=== PATIENT | female | born 1960 | race Caucasian/White ===

== ENCOUNTER 2023-10-26 10:10 | Inpatient (IN) ==
[2023-10-26] MEDS: propofoL 1,000 MG/100 ML VIAL IV SCH (10:18)
--- NOTE | 2023-10-26 10:22 | Emergency Department Note ---
Impression & Plan Acute hypoxic respiratory failure, Flash pulmonary edema, CHF (congestive heart failure) ED Provider Note NAME: RALPH PENA AGE: 63 SEX: F : 1960 ARRIVES VIA: Ambulance INFORMANT: EMS, Nurse ED PROVIDER(S): Lux Smith DO CHIEF COMPLAINT: Shortness of breath HPI: Patient is a 63-year-old female who was over at [facility] getting a MRI of her knee performed. They noticed that she was in respiratory distress and she was blue and she was intubated by anesthesia who was called to MRI. Prior to the MRI she received no medications/sedation per report of EMS. She received succinylcholine, propofol and Versed from anesthesiology who was called to the MRI to intubate and evaluate the patient. She was transported here via EMS. Initially they tried CPAP but that did not help. Unable to obtain a history from the patient. She received no IV contrast. ADDITIONAL HISTORY OBTAINED: Per HPI Chronic Medical/Social Conditions Affecting Care: Per HPI PAST MEDICAL HISTORY:See Below PAST SURGICAL HISTORY:See Below FAMILY HISTORY:See Below SOCIAL HISTORY:See Below HOME MEDICATIONS:See Below ALLERGIES:See Below VITALS:See Below PHYSICAL EXAMINATION: GENERAL: Lying in bed intubated, moving all extremities EYE EXAM: normal conjunctiva. PERRL and EOM's grossly intact. OROPHARYNX: no exudate, no erythema, lips, buccal mucosa, and tongue normal and mucous membranes are moist NECK: supple, no nuchal rigidity, no adenopathy, non-tender LUNGS: Diminished bilaterally. Normal chest wall mechanics HEART: no murmurs, S1 normal and S2 normal ABDOMEN: abdomen soft, non-tender, normo-active bowel sounds, no masses, no rebound or guarding. UPPER EXTREMITIES: upper extremities are grossly normal. LOWER EXTREMITIES: Pitting edema in the lower extremities NEURO EXAM: Awake moving all extremities following commands MEDICAL DECISION MAKING: Patient is a 63-year-old female who presents the ER following obtaining an MRI increase fluids and was intubated there. She was transported here via EMS. Upon arrival she was fighting the vent and consequently was paralyzed with poor tidal volumes. IV was established blood work was obtained. Labs showed a mild leukocytosis of 15,000. No significant anemia. ABG with a pH of 7 and a CO2 of nearly 70. BMP was suggestive of an acidosis with a bicarb of 19. Glucose was mildly elevated at 300. Lactate was elevated at 4 which is likely secondary to the hypoxia. LFTs bilirubin was unremarkable. Troponin mildly elevated at 33. Pro-Johnnie was normal. Chest x-ray with bilateral opacities and in the clinical setting I do favor is most consistent with flash pulmonary edema as the patient has bilateral pitting edema and is very hypertensive. Patient was placed on propofol drip given 5 of Versed and 10 of vecuronium initially upon arrival to assist with compliance of the vent and tidal volumes. Case was discussed with the hospitalist as well as the hog cooler. They favored that at this point was likely not pulmonary edema consequently I did hold on the Lasix. Will defer to the hog cooler as they requested a CT of the head and angio of the chest which was pending upon admission and patient has stabilized. Propofol was used for sedation and was adjusted throughout the patient's stay in the ER. Consults/Care Managements Discussions: Per [facility] Triage Nursing notes reviewed. Limited review of prior medical records performed Vital Signs: reviewed and remarkable for hypertensive, tachycardic and tachypneic Differential diagnosis: Differential diagnoses includes but is not limited to pneumonia, bronchitis, COPD/Asthma exacerbation, pneumothorax, pulmonary embolism, congestive heart failure, acute coronary syndrome ER treatment provided: See below Diagnostics interpreted by me include EKG and cardiac monitoring as listed below: -Cardiac Monitoring: An order was placed for continuous cardiac monitoring. The monitor shows a rate of 110 with sinus rhythm. -ECG: Sinus rhythm rate of 126 Normal axis No PVCs QTc [address] wave changes in the septal leads and inferior leads slightly changed from previous -Laboratory studies:Interpreted by me as stated above in MDM and shown below. Imaging studies: Xrays: As interpreted by me: Portable AP upright 1 view the chest shows bilateral infiltrates CTs show: CT of the head was negative per radiology Procedures:none Critical Care:I have personally spent 75 minutes of critical care time in the direct management of this patient. This includes bedside care, interpretation of diagnostic studies, and testing, discussion with consultants, patient, and family members, and other required patient management activities. This 75 minutes is in excess of all separately billable procedures. 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 Required: No Current Living Situation: Spouse Current Living Situation Comment: Per [facility] Records Assistive Devices: Denture - Upper, Denture - Lower and Glasses Assistive Devices Comment: Reading glasses Allergies Allergies Allergy/AdvReac Type Severity Reaction Status Date / Time codeine AdvReac Gastrointestinal Verified 10/26/23 13:42 Upset Home Meds Home Medications Medication Instructions Recorded Confirmed ATORVASTATIN (LIPITOR) 80 mg PO DAILY ##0 09/14/17 10/26/23 acetaminophen 650 mg 650 mg PO Q8H PRN Pain 10/26/23 10/26/23 tablet,extended release (Tylenol Arthritis Pain) Results & Data (ED) Vital Signs Vital Signs - 24 hr 10/26/23 10:15 10/26/23 10:16 10/26/23 10:16 Pulse Rate 126 H 115 H 127 H Pulse Rate from SpO2 Sensor Pulse Rhythm Regular Pulse Strength Normal Respiratory Rate 27 H 28 H 41 H Blood Pressure 195/123 H 195/123 H Blood Pressure Mean 147 152 Blood Pressure Position Lying Pulse Oximetry 100 95 99 Oxygen Delivery Method Mechanical Vent Mechanical Vent Fraction of Inspired Oxygen 100 Sepsis New/Unexplained Change in Mental Status No Sepsis Action Taken by Nursing Physician Notified End-Tidal CO2 46 10/26/23 10:25 10/26/23 10:27 10/26/23 10:32 Pulse Rate 110 H 103 H Pulse Rate from SpO2 Sensor 111 H Pulse Rhythm Pulse Strength Respiratory Rate 28 H 28 H Blood Pressure 141/90 H 124/88 Blood Pressure Mean 107 95 Blood Pressure Position Pulse Oximetry 96 94 Oxygen Delivery Method Mechanical Vent Mechanical Vent Fraction of Inspired Oxygen 50 Sepsis New/Unexplained Change in Mental Status Sepsis Action Taken by Nursing End-Tidal CO2 39 10/26/23 10:34 10/26/23 10:39 10/26/23 10:42 Pulse Rate 126 H 92 H Pulse Rate from SpO2 Sensor 92 H Pulse Rhythm Pulse Strength Respiratory Rate 28 H Blood Pressure 120/81 107/83 Blood Pressure Mean 92 91 Blood Pressure Position Pulse Oximetry 91 Oxygen Delivery Method Mechanical Vent Fraction of Inspired Oxygen Sepsis New/Unexplained Change in Mental Status Sepsis Action Taken by Nursing End-Tidal CO2 33 10/26/23 10:44 10/26/23 10:48 10/26/23 10:51 Pulse Rate 91 H Pulse Rate from SpO2 Sensor 91 H Pulse Rhythm Pulse Strength Respiratory Rate 28 H Blood Pressure 127/78 126/84 134/82 Blood Pressure Mean 92 99 99 Blood Pressure Position Pulse Oximetry 94 Oxygen Delivery Method Mechanical Vent Fraction of Inspired Oxygen Sepsis New/Unexplained Change in Mental Status Sepsis Action Taken by Nursing End-Tidal CO2 33 10/26/23 10:53 10/26/23 10:54 10/26/23 10:58 Pulse Rate 90 93 H Pulse Rate from SpO2 Sensor 92 H Pulse Rhythm Pulse Strength Respiratory Rate 28 H 28 H Blood Pressure 153/90 H 142/90 H Blood Pressure Mean 109 109 Blood Pressure Position Pulse Oximetry 98 100 Oxygen Delivery Method Mechanical Vent Fraction of Inspired Oxygen Sepsis New/Unexplained Change in Mental Status Sepsis Action Taken by Nursing End-Tidal CO2 32 10/26/23 11:00 10/26/23 11:00 Pulse Rate 88 Pulse Rate from SpO2 Sensor 89 Pulse Rhythm Pulse Strength Respiratory Rate 28 H Blood Pressure 136/98 Blood Pressure Mean 110 Blood Pressure Position Pulse Oximetry 100 Oxygen Delivery Method Fraction of Inspired Oxygen Sepsis New/Unexplained Change in Mental Status Sepsis Action Taken by Nursing End-Tidal CO2 31 Laboratory Data 10/26/23 10:20 10/26/23 10:20 Lab Results 10/26/23 10/26/23 10/26/23 Range/Units 10:20 10:22 10:53 WBC 15.17 H (4.8-10.8) K/ul RBC 4.78 (4.20-5.40) M/uL Hgb 13.2 (12.0-16.0) g/dl POC Hgb 13.9 12.9 (12.0-16.0) g/dl Hct 42.8 (37.0-47.0) % POC Hct 41 38 (37-47) % MCV 89.5 (80.0-100.0) fL MCH 27.6 (25.0-34.0) pg MCHC 30.8 L (32.0-36.0) g/dL RDW Std Deviation 44.8 (36.4-46.3) fL RDW Coeff of Vanita 13.7 (11.5-14.5) % Plt Count 283 (130-400) K/uL MPV 12.4 (9.4-12.4) fL Immature Gran % (Auto) 0.5 % Neut % (Auto) 42.1 % Lymph % (Auto) 49.4 % [place] % (Auto) 5.8 % Eos % (Auto) 1.5 % Baso % (Auto) 0.7 % Neut # (Auto) 6.39 (1.40-6.50) K/uL Lymph # (Auto) 7.50 H (1.20-3.40) K/uL [place] # (Auto) 0.88 H (0.11-0.59) K/uL Eos # (Auto) 0.22 (0.00-0.50) K/uL Baso # (Auto) 0.10 (0.00-0.20) K/uL Immature Gran # (Auto) 0.08 (0.01-0.20) K/uL POC pH 7.08 L* (7.35-7.45) POC pCO2 61 H (35-46) mmHg POC pO2 324 H (80-95) mmHg POC HCO3 18 L (19-24) paula/L POC Total CO2 20 L 18 L (24-31) mmol/L POC Base Excess -12.0 L (-9-1.8) paula/L POC ABG O2 Sat 100.0 H (90-95) % POC Sodium 141 140 (135-144) mmol/L Sodium 140 (136-145) mmol/L POC Potassium 3.6 3.3 (3.3-5.0) mmol/L Potassium 3.8 (3.5-5.1) mmol/L POC Chloride 106 (101-112) mmol/L Chloride 106 (98-107) mmol/L Carbon Dioxide 19 L (21-32) mmol/L Anion Gap 15 H (3-11) POC Anion Gap 20.0 (16-25) mmol/L POC BUN 14 (7-18) mg/dl BUN 15 (6-23) mg/dl Creatinine 1.13 (0.6-1.2) mg/dl POC Creatinine 1.0 (0.6-1.3) mg/dl Est Cr Clr Drug Dosing 54.0 ml/min Est GFR ( Amer) 59.1 ml/min Est GFR (Non-Af Amer) 51.0 ml/min BUN/Creatinine Ratio 13.3 (10-20) Glucose 321 H* (70-99(Fasting)) mg/dl POC Glucose (other) 263 H (70-99) mg/dl Estimat Average Glucose 111 mg/dl Hemoglobin A1c 5.5 (4.5-5.6) % Calcium 8.4 L (8.6-10.3) mg/dl POC Ioniz Calcium Peggy 1.12 (1.12-1.32) mmol/l Total Bilirubin 0.6 (0.2-1.0) mg/dl AST 17 (13-39) U/L ALT 14 (7-52) U/L Alkaline Phosphatase 90 (34-104) U/L Troponin I High Sens 33.3 H (0-14) pg/ml Total Protein 7.2 (6.0-8.3) gm/dl Albumin 3.9 (3.4-5.0) gm/dl Globulin 3.3 (2.5-4.0) gm/dl Albumin/Globulin Ratio 1.2 (0.9-2) Lipase 19 (11-82) U/L Procalcitonin < 0.02 (0-0.5) ng/ml Administered Medications Enoxaparin Sodium (Enoxaparin Inj 40 Mg/0.4 Ml Syr) 40 mg SQ Q24H LESTER Stop: 11/25/23 13:59 Last Admin: 10/26/23 14:16 Dose: 40 mg Documented By: TDT Propofol (Diprivan) 1,000 mg in 100 mls @ 5.418 mls/hr IV .[id number] LESTER; Protocol Stop: 10/29/23 10:29 Last Titration: 10/26/23 13:29 Dose: 10 mcg/kg/min, 5.4 mls/hr Documented By: Titration: 10/26/23 12:00 Dose: 35 mcg/kg/min, 19 mls/hr Documented By: Titration: 10/26/23 11:19 Dose: 30.08 mcg/kg/min, 16.3 mls/hr Documented By: Titration: 10/26/23 10:47 Dose: 20 mcg/kg/min, 10.8 mls/hr Documented By: Titration: 10/26/23 10:32 Dose: 30 mcg/kg/min, 16.3 mls/hr Documented By: Admin: 10/26/23 10:18 Dose: 40 mcg/kg/min, 21.7 mls/hr Documented By: REENA Co-signed By: VINOD Fentanyl Citrate (Fentanyl Citrate) 2,500 mcg in 250 mls @ 2.5 mls/hr IV .Q96H LESTER; Protocol Stop: 11/09/23 12:29 Last Titration: 10/26/23 14:51 Dose: 25 mcg/hr, 2.5 mls/hr Documented By: TDT Co-signed By: MAY Titration: 10/26/23 14:04 Dose: 0 mcg/hr, 0 mls/hr Documented By: TDT Co-signed By: MAY Admin: 10/26/23 12:35 Dose: 50 mcg/hr, 5 mls/hr Documented By: TDT Co-signed By: KEMI Famotidine (Pepcid 20mg Iv Push) 20 mg in 5 mls @ 2.5 mls/min IV Q12H LESTER Stop: 11/25/23 12:44 Last Admin: 10/26/23 13:01 Dose: 2.5 mls/min Documented By: JENI Doxycycline Hyclate 100 mg/ (Dextrose) 100 mls @ 50 mls/hr IV Q12H LESTER Stop: 11/02/23 13:59 Last Admin: 10/26/23 14:16 Dose: 50 mls/hr Documented By: JENI Discontinued Medications Furosemide (Furosemide 40 Mg/4 Ml Vial) 40 mg IV NOW STA Stop: 10/26/23 10:37 Last Admin: 10/26/23 10:55 Dose: Not Given Documented By: NH Furosemide (Furosemide Inj 20 Mg/2 Ml Vial) 20 mg IV ONE ONE Stop: 10/26/23 12:32 Last Admin: 10/26/23 13:01 Dose: 20 mg Documented By: TDT Sodium Chloride (Nss) 1,000 mls @ 999 mls/hr IV .Q1H1M ONE Stop: 10/26/23 12:43 Last Admin: 10/26/23 12:45 Dose: Not Given Documented By: ES Piperacillin Sod/Tazobactam Sod (Zosyn) 4.5 gm in 100 mls @ 200 mls/hr IV NOW ONE Stop: 10/26/23 12:25 Last Infusion: 10/26/23 14:51 Dose: Infused Documented By: Admin: 10/26/23 14:16 Dose: 200 mls/hr Documented By: TDT Ioversol (Optiray 320 125ml) 112 ml IV ONCE ONE Stop: 10/26/23 11:38 Last Admin: 10/26/23 11:37 Dose: 112 ml Documented By: SEJAL Midazolam HCl (Midazolam Hcl 5 Mg/Ml 2ml Vial) Confirm Administered Dose 10 mg .ROUTE .STK-MED ONE Stop: 10/26/23 10:21 Last Admin: 10/26/23 10:34 Dose: Not Given Documented By: NH Midazolam HCl (Midazolam Hcl 5 Mg/Ml 1 Ml Vial) 5 mg IV NOW STA Stop: 10/26/23 10:23 Last Admin: 10/26/23 10:24 Dose: 5 mg Documented By: REENA Ibarraaneous (Stat Iv Infusion Titration Per Protocol) 1 each N/A NOW STA Stop: 10/26/23 10:25 Last Admin: 10/26/23 10:35 Dose: Not Given Documented By: REENA Ibarraaneous (Icu Protocol For Hyperglycemia) 1 each N/A ACHS LESTER Stop: 10/28/23 12:29 Last Admin: 10/26/23 13:08 Dose: Not Given Documented By: ES Propofol (Propofol Iv Emulsion 10 Mg/Ml 100 Ml Vial) Confirm Administered Dose 1,000 mg IV .STK-MED ONE Stop: 10/26/23 10:08 Last Admin: 10/26/23 10:34 Dose: Not Given Documented By: NH Vecuronium [place] (Vecuronium [place] 10 Mg Vial) Confirm Administered Dose 10 mg IV .STK-MED ONE Stop: 10/26/23 10:17 Last Admin: 10/26/23 10:34 Dose: Not Given Documented By: NH Vecuronium [place] (Vecuronium [place] 10 Mg Vial) 10 mg IV NOW STA Stop: 10/26/23 10:23 Last Admin: 10/26/23 10:24 Dose: 10 mg Documented By: REENA Co-signed By: VINOD Imaging Data Radiologist's Impression: Chest X-Ray 10/26/23 10:05 XR chest 1V portable CLINICAL HISTORY: Chest pain, nonspecific TECHNIQUE: Single frontal radiograph of the chest was obtained. Comparison: Comparison is made to chest radiograph 02/21/2014 FINDINGS: Endotracheal tube tip measures 4 cm from the armando. Cardiomegaly is noted. Multifocal airspace opacities are seen. No evidence of pleural effusion or pneumothorax. IMPRESSION: 1. Satisfactory appearance of endotracheal tube. 2. Cardiomegaly. 3. Multifocal airspace opacities may represent atelectasis, pneumonia, and/or aspiration. ACT 112: Negative or not required by law. Electronically signed by: Antione Lott M.D. 10/26/2023 10:40 AM Chest CTA 10/26/23 10:45 CT angio chest PE protocol CLINICAL HISTORY: PE TECHNIQUE: Multidetector row helical CT of the chest was performed with angiographic protocol. Coronal and sagittal reformations were obtained. Coronal and sagittal MIPS were obtained from the axial data set and were submitted for review. Automated dose lowering techniques and/or adjustment according to patient size were utilized for this exam. CT DOSE: 1291.86 mGy.cm Comparison: Comparison is made to CTA chest 02/21/2014 FINDINGS: Lungs and pleura: Small bilateral pleural effusions are seen. There are underlying airspace opacities as well as smooth interlobular septal thickening. Heart and pericardium: Cardiomegaly is seen with biatrial enlargement. Vessels: No evidence of pulmonary embolism. Mediastinum and lurdes: Subcentimeter lymph nodes are seen. Chest wall and lower neck: Unremarkable. Abdomen: Unremarkable. Bones: Degenerative changes in the thoracic spine. IMPRESSION: Pulmonary edema and bilateral pleural effusions are seen. Superimposed pneumonia would be impossible to exclude. ACT 112: Negative or not required by law. Electronically signed by: Antione Lott M.D. 10/26/2023 12:[address] 10/26/23 10:45 CT SCAN OF THE BRAIN WITHOUT IV CONTRAST CLINICAL HISTORY: Respiratory failure. Change in mental status. COMPARISON STUDY: No priors. TECHNIQUE: Unenhanced axial CT scan of the brain is performed from the vertex to the skull base. A dose lowering technique was utilized adhering to the principles of ALARA. FINDINGS: An endotracheal tube is noted on the senior linux administrator tomogram. Brain parenchyma: The brain parenchyma is normal in appearance. There is no hemorrhage, mass effect, or evidence of acute territorial ischemia by CT criteria. Manuel-white matter differentiation is preserved. No extra-axial fluid collection is seen. Ventricles, sulci, cisterns: Normal in configuration. Intracranial vasculature: The visualized intracranial vasculature at the skull base is normal in appearance. Calvarium: Unremarkable. Sinuses and mastoids: There is trace mucosal thickening within the ethmoid sinuses. There is a small right mastoid effusion. The left mastoid air cells are well pneumatized. Orbits: The bony orbits are grossly intact. IMPRESSION: There is no hemorrhage, mass effect, or evidence of acute territorial ischemia by CT criteria. ACT 112: Negative or not required by law. Electronically signed by: Simon Ramos M.D. 10/26/2023 11:49 AM Discharge Plan Visit Data Chief Complaint: Respiratory Distress ED Provider: Lux Smith Discharge Problem: Acute hypoxic respiratory failure, Flash pulmonary edema, CHF (congestive heart failure) Patient Disposition: Admitted As Inpatient Discharge Instructions Interventions: ED Discharge Assessment Last Done: 10/26/23 11:28 Discharge Problem: CHF (congestive heart failure) Qualifiers: Heart failure type: unspecified Heart failure chronicity: unspecified Qualified Code(s): I50.9 - Heart failure, unspecified
[2023-10-26] MEDS: VECURONIUM BROMIDE 10 MG VIAL IV STA (10:24)
[2023-10-26] MEDS ORDERED: PROPOFOL BOLUS FROM BAG IV PRN (10:24)
[2023-10-26] MEDS: MIDAZOLAM HCL 5 MG/ML 1 ML VIAL IV STA (10:24)
[2023-10-26] MEDS: VECURONIUM BROMIDE 10 MG VIAL IV ONE (10:34)
[2023-10-26] MEDS: PROPOFOL IV EMULSION 10 MG/ML 100 ML VIAL IV ONE (10:34)
[2023-10-26] MEDS: MIDAZOLAM HCL 5 MG/ML 2ML VIAL ONE (10:34)
[2023-10-26] MEDS: STAT IV Infusion **Titration per Protocol STA (10:35)
[2023-10-26 10:38] LABS: Hematocrit (blood only) 42.8 % (37.0-47.0); Hemoglobin 13.2 g/dl (12.0-16.0); Mean Corpuscular Hemoglobin 27.6 pg (25.0-34.0); Mean Corpuscular Hgb Conc 30.8 g/dL (32.0-36.0); Mean Corpuscular Volume 89.5 fL (80.0-100.0); Mean Platelet Volume 12.4 fL (9.4-12.4); Platelet Count 283 K/uL (130-400); RDW Coefficient of Variation 13.7 % (11.5-14.5); RDW Standard Deviation 44.8 fL (36.4-46.3); Red Blood Count 4.78 M/uL (4.20-5.40); White Blood Count 15.17 K/ul (4.8-10.8)
--- NOTE | 2023-10-26 10:41 | XRay Report ---
XR chest 1V portable CLINICAL HISTORY: Chest pain, nonspecific TECHNIQUE: Single frontal radiograph of the chest was obtained. Comparison: Comparison is made to chest radiograph 02/21/2014 FINDINGS: Endotracheal tube tip measures 4 cm from the armando. Cardiomegaly is noted. Multifocal airspace opaci ties are seen. No evidence of pleural effusion or pneumothorax. IMPRESSION: 1. Satisfactory appearance of endotracheal tube. 2. Cardiomegaly. 3. Multifocal airspace opacities may represent atelectasis, pneumonia, and/or aspiration. ACT 112: Negative or not required by law. Electronically signed by: Antione Lott M.D. 10/26/2023 10:40 AM
[2023-10-26] MEDS: FUROSEMIDE 40 MG/4 ML VIAL IV STA (10:55)
--- NOTE | 2023-10-26 10:55 | History & Physical Report ---
Date of Service October 26, 2023 Assessment & Plan (1) Acute hypoxic respiratory failure: (2) Severe sepsis: (3) Elevated troponin: (4) Increased anion gap metabolic acidosis: Plan Ana Armenta is a 63y/o F with PMHx including dyslipidemia, asthma, HTN and CKD stage III who presented to the ED via ambulance after being intubated by EMS personnel secondary to acute respiratory distress. Acute Hypoxic Respiratory Failure s/p Intubation Severe Sepsis, Flash Pulmonary Edema - Patient meets severe sepsis criteria 2/2 tachypnea, WBC>12K, present source of infection and lactic acidosis. Patient was over at [facility] getting an MRI of her left knee this morning when she suddenly became short of breath during the imaging study. According to staff at [facility], the patient was "blue" in appearance and subsequently had to be intubated by an anesthesia provider who was called to MRI. Initially staff tried CPAP, but unfortunately that did not help. Per EMS, the patient did not receive any medications or sedation prior to the MRI. She also did not receive any IV contrast. Patient received succinylcholine, propofol and Versed from anesthesiology for the intubation. Admitting Vitals: BP 156/106, HR 81, RR 28 and 98% SpO2 via respiratory ventilator. CXR showing satisfactory placement of ET tube, cardiomegaly and multifocal airspace opacities. Chest CTA reveals pulmonary edema w/ bilateral pleural effusions, superimposed pneumonia impossible to exclude. Head CT negative, no evidence of hemorrhage or acute ischemia. Afebrile, WBC elevated at 15.17 on admission. Lactate 4.1, procalcitonin negative. No electrolyte abnormalities. Pt received 40mg IV Lasix in ED - trace b/l pedal edema on exam. 1L NSS bolus ordered 2/2 lactic acidosis. ABG pH 7.378, pCO2 33, pO2 72. Ventilation changes s/p ABG results --> Frequency increased to 28, FIO2 decreased to 50%. RVP, MRSA screen pending - follow. ABX coverage w/ IV Zosyn for now. Blood cultures, UA pending - follow. IV Protonix BID for GI prophylaxis. Echo pending - follow results. Elevated Troponin Trop 33.3 on admission. EKG negative for acute ischemia. Repeat trop pending, follow + trend. Suspect most likely 2/2 cardiac demand. Elevated Glucose Level Increased Anion Gap Metabolic Acidosis Glucose 321 on presentation, repeat POC BSG 263. Pt w/ no previous history of DM. Hgb A1c 5.5 at time of admission. Total CO2 18, anion gap 15. UA pending to assess for ketones - follow. SSI regimen initiated, routine BSG checks. HTN Appears pt was on 40mg lisinopril daily in the past. Not currently taking any antihypertensive meds per chart review. Dyslipidemia Pt on atorvastatin 80mg CONTENT STRATEGY LEAD according to chart review. Holding statin therapy for now; fasting lipid panel in AM - follow. CKD Stage III Cr 1.0 on admission, appears baseline Cr ~1.1-1.4 per chart review. Repeat CMP in AM - monitor renal function. Avoid nephrotoxic meds when able. Patient's daughter, Lyric, is aware of her being admitted here at [facility]. She was contacted by the patient's PCP office ([facility]), who were unable to get ahold of her , Yahir. Therefore, they contacted her daughter who is listed as her secondary contact on [email or web address] [contact information unable on [email or web address]]. Lyric will be communicating this information to Yahir. Yahir Armenta [Patient's ]: #[phone] Lyric Oseguera [Patient's Daughter]: #[phone] DVT Prophylaxis: SQ Lovenox Code Status: FULL CODE - Code status not on file, patient will be full code at this time 2/2 inability to communicate. PCP: NO PCP * However, appears patient has followed w/ Dr. Ariane Lu from [facility] at [facility] in the past per chart review on [email or web address]. Disposition: Admit to ICU for further management and care. Patient seen in collaboration with Dr. Kaminski. Please see addendum. I spent a total of 60 minutes coordinating, documenting, and providing care for this patient excluding time spent in the performance of separately billed services. This included personally reviewing all current laboratories and imaging studies, medical reconciliation, outpatient chart review and discussion with specialists. This chart was completed in part utilizing Speech Voice Recognition Software. Grammatical errors, random word insertions, pronoun errors, and incomplete sentences are an occasional consequence of this system due to software li mitations, ambient noise, and hardware issues. Any formal questions or concerns about the content, text, or information contained within the body of this dictation should be directly addressed to the provider for clarification. History of Present Illness Chief Complaint: Respiratory Distress S/P Intubation Primary Care Provider: NO PCP Ana Armenta is a 63y/o F with PMHx including dyslipidemia, asthma, HTN and CKD stage III who presented to the ED via ambulance after being intubated by EMS personnel secondary to acute respiratory distress. History obtained from chart review and discussion with ED provider. Patient was over at [facility] getting an MRI of her left knee this morning when she suddenly became short of breath during the imaging study. According to staff at [facility], the patient was "blue" in appearance and subsequently had to be intubated by an anesthesia provider who was called to MRI. Initially staff tried CPAP, but unfortunately that did not help. Per EMS, the patient did not receive any med ications or sedation prior to the MRI. She also did not receive any IV contrast. Patient received succinylcholine, propofol and Versed from anesthesiology for the intubation. Unable to obtain any history from patient secondary to intubation status. Allergies Allergy/AdvReac Type Severity Reaction Status Date / Time CODIENE Allergy Mild GI UPSET Uncoded 10/26/23 12:52 Home Medications Medication Instructions Recorded Confirmed Type ATORVASTATIN (LIPITOR) 80 mg PO DAILY ##0 09/14/17 10/26/23 History acetaminophen 650 mg 650 mg PO Q8H PRN Pain 10/26/23 10/26/23 History tablet,extended release (Tylenol Arthritis Pain) Past Med/Surg History Problem List (Updated 10/26/23 @ 12:55 by Jeffrey Castellon MD) Aspiration pneumonitis Endotracheally intubated Increased anion gap metabolic acidosis Elevated glucose level Pleural effusion, bilateral CHF (congestive heart failure) (Acute) Flash pulmonary edema (Acute) Elevated troponin Severe sepsis Acute hypoxic respiratory failure (Acute) Medical History Chronic kidney disease (CKD) Asthma Dyslipidemia Hypertension Social History Preferred Language: Hungarian Review of Systems Review of Systems: Unable to obtain secondary to patient's intubation status. Physical Exam Physical Exam: Please refer to Dr. Kaminski's addendum for physical examination findings. Results & Data Results & Data Vital Signs (Past 12 Hours) Vital Signs Pulse Resp BP Pulse Ox O2 Del Method FiO2 10/26/23 10:39 126 H 10/26/23 10:25 28 H 50 10/26/23 10:16 115 H 28 H 195/123 H 95 Mechanical Vent 10/26/23 10:15 126 H 27 H 100 100 Laboratory Results Short CBC 10/26/23 Range/Units 10:20 WBC 15.17 H (4.8-10.8) K/ul Hgb 13.2 (12.0-16.0) g/dl Hct 42.8 (37.0-47.0) % Plt Count 283 (130-400) K/uL BMP 10/26/23 10:20 Sodium 140 Potassium 3.8 Chloride 106 Carbon Dioxide 19 L BUN 15 Creatinine 1.13 Glucose 321 H* Calcium 8.4 L Liver Function 10/26/23 Range/Units 10:20 Total Bilirubin 0.6 (0.2-1.0) mg/dl AST 17 (13-39) U/L ALT 14 (7-52) U/L Alkaline Phosphatase 90 (34-104) U/L Albumin 3.9 (3.4-5.0) gm/dl Medications Administered Propofol (Diprivan) 1,000 mg in 100 mls @ 10.836 mls/hr IV .[id number] [facility]; Protocol Stop: 10/29/23 10:29 Last Titration: 10/26/23 11:19 Dose: 30.08 mcg/kg/min, 16.3 mls/hr Documented By: Titration: 10/26/23 10:47 Dose: 20 mcg/kg/min, 10.8 mls/hr Documented By: Titration: 10/26/23 10:32 Dose: 30 mcg/kg/min, 16.3 mls/hr Documented By: Admin: 10/26/23 10:18 Dose: 40 mcg/kg/min, 21.7 mls/hr Documented By: REENA Co-signed By: VINOD Discontinued Medications Furosemide (Furosemide 40 Mg/4 Ml Vial) 40 mg IV NOW STA Stop: 10/26/23 10:37 Last Admin: 10/26/23 10:55 Dose: Not Given Documented By: REENA Ioversol (Optiray 320 125ml) 112 ml IV ONCE ONE Stop: 10/26/23 11:38 Last Admin: 10/26/23 11:37 Dose: 112 ml Documented By: SEJAL Midazolam HCl (Midazolam Hcl 5 Mg/Ml 2ml Vial) Confirm Administered Dose 10 mg .ROUTE .STK-MED ONE Stop: 10/26/23 10:21 Last Admin: 10/26/23 10:34 Dose: Not Given Documented By: REENA Midazolam HCl (Midazolam Hcl 5 Mg/Ml 1 Ml Vial) 5 mg IV NOW STA Stop: 10/26/23 10:23 Last Admin: 10/26/23 10:24 Dose: 5 mg Documented By: REENA Miscellaneous (Stat Iv Infusion Titration Per Protocol) 1 each N/A NOW STA Stop: 10/26/23 10:25 Last Admin: 10/26/23 10:35 Dose: Not Given Documented By: REENA Propofol (Propofol Iv Emulsion 10 Mg/Ml 100 Ml Vial) Confirm Administered Dose 1,000 mg IV .STK-MED ONE Stop: 10/26/23 10:08 Last Admin: 10/26/23 10:34 Dose: Not Given Documented By: REENA Vecuronium Hanna (Vecuronium Hanna 10 Mg Vial) Confirm Administered Dose 10 mg IV .STK-MED ONE Stop: 10/26/23 10:17 Last Admin: 10/26/23 10:34 Dose: Not Given Documented By: REENA Vecuronium Hanna (Vecuronium Hanna 10 Mg Vial) 10 mg IV NOW STA Stop: 10/26/23 10:23 Last Admin: 10/26/23 10:24 Dose: 10 mg Documented By: REENA Co-signed By: VINOD ECG Additional Comments: Admitting EKG w/ sinus tachycardia, HR 126bpm and QTc interval 448ms. Code Status & VTE Plan Code Status FULL CODE Supervising Physician Co-Signing Physician Notes Patient is a 63-year-old female with history of asthma, hypertension, hyperlipidemia, stage III CKD, osteoarthritis and no other significant medical problems as per record, presents with respiratory failure requiring intubation and currently unable to provide any history. I tried to reach patient's over the phone, unable to contact him. Most of the history is obtained from patient's records, ER physician. Patient had an MRI of the knee at [facility] today for evaluation of osteoarthritis, and developed respiratory distress developing cyanosis and had to be intubated by anesthesia. She was later transferred to [facility] for further evaluation. She has received succinylcholine, propofol and Versed from anesthesiology. While in ED patient received vecuronium. I personally reviewed blood work and imaging studies. He presented with hypertensive urgency, later blood pressure improved. He also was in sinus tachycardia during my encounter. Blood work suggestive of leukocytosis 15.1 K, chemistry suggestive anion gap metabolic acidosis, also noted glucose elevated at 321, calcium 8.4, A1c 5.5, elevated lactic acid 4.1, procalcitonin 0.02.Initial ABG suggestive of respiratory acidosis with hypercarbia. urine analysis currently pending. Blood cultures pending. CT head showed no acute process. CTA showed findings suggestive of pulmonary edema, bilateral pleural effusion, possible multifocal pneumonia. Nasal MRSA, BioFire currently pending. Physical Exam: Vitals signs as noted above General Appearance:Obese, no distress, + sedated and intubated Head: normocephalic, Atraumatic Eyes: normal inspection, EOMI Neck: supple, Trachea midline Respiratory/Chest: Normal breath sounds, b/l crackles, No accessory muscle use Cardiovascular: S1, S2, No murmur, + tachycardia Abdomen/GI:Soft, Non tender, Bowel sounds present Extremities/Musculoskeletal:normal inspection, 1+ bilateral LE edema Neurologic/Psych: Sedated, intubated, unable to perform complete neurological exam Skin: normal color, warm Acute respiratory failure with hypercarbia Anion gap metabolic acidosis Acute metabolic encephalopathy Flash Pulmonary Edema Possible Sepsis Lactic acidosis likely due to respiratory failure Type II ID demand ischemia Hypertensive urgency--likely situational Sinus tachycardia Possible Aspiration pneumonia Hyperglycemia--Hb A1C 5.5 Negative Nasal MRSA BioFire pending Received IV Lasix in ED Trend troponins, lactate levels Blood cultures obtained Started on IV Zosyn empirically Ventilator management as per ICU team Appreciate critical care input Agree with checking resting echo Monitor volume status closely MRI brain pending Aspiration precautions Acidosis improving on repeat ABG I personally interviewed and examined at bedside. Patient's care is coordinated with Nina Shipman PA-C . I have reviewed the advanced practitioner's documentation, and I agree with plan of care. Please refer to the documentation above for details of patient's presentation and for discussion of other issues. I spent a total of75 minutes coordinating, documenting, and providing care for this patient excluding time spent in the performance of separately billed services.
[2023-10-26 10:57] LABS: Albumin Globulin Ratio 1.2 (0.9-2); Albumin Level 3.9 gm/dl (3.4-5.0); BUN Creatinine Ratio 13.3 (10-20); Bilirubin,Total 0.6 mg/dl (0.2-1.0); Calcium 8.4 mg/dl (8.6-10.3); Est GFR (African American) 59.1 ml/min; Globulin 3.3 gm/dl (2.5-4.0); Potassium 3.8 mmol/L (3.5-5.1); Total Protein 7.2 gm/dl (6.0-8.3)
[2023-10-26 11:01] LABS: Troponin I High Sensitivity 33.3 pg/ml (0-14)
[2023-10-26 11:06] LABS: iSTAT Hemoglobin 12.9 g/dl (12.0-16.0); iSTAT Ionized Calcium 1.12 mmol/l (1.12-1.32); iSTAT Potassium 3.3 mmol/L (3.3-5.0)
[2023-10-26 11:09] LABS: Basophils % (auto) 0.7 %; Eosinophils # (auto) 0.22 K/uL (0.00-0.50); Eosinophils % (auto) 1.5 %; Immature Granulocytes # (auto) 0.08 K/uL (0.01-0.20); Immature Granulocytes % (auto) 0.5 %; Lymphocytes % (auto) 49.4 %; Monocytes # (auto) 0.88 K/uL (0.11-0.59); Monocytes % (auto) 5.8 %; Neutrophils # (auto) 6.39 K/uL (1.40-6.50); Neutrophils % (auto) 42.1 %
[2023-10-26] MEDS: OPTIRAY 320 125ml IV ONE (11:37)
--- NOTE | 2023-10-26 11:52 | CT Scan Report ---
CT SCAN OF THE BRAIN WITHOUT IV CONTRAST CLINICAL HISTORY: Respiratory failure. Change in mental status. COMPARISON STUDY: No priors. TECHNIQUE: Unenhanced axial CT scan of the brain is performed from the vertex to the skull base. A d ose lowering technique was utilized adhering to the principles of ALARA. FINDINGS: An endotracheal tube is noted on the chief building inspector tomogram. Brain parenchyma: The brain parenchyma is normal in appearance. There is no hemorrhage, mass effect, or evidence of acute territorial ischemia by CT criteria. Manuel-white matter differentiation is preser brian. No extra-axial fluid collection is seen. Ventricles, sulci, cisterns: Normal in configuration. Intracranial vasculature: The visualized intracranial vasculature at the skull base is normal in appe arance. Calvarium: Unremarkable. Sinuses and mastoids: There is trace mucosal thickening within the ethmoid sinuses. There is a small right mastoid effusion. The left mastoid air cells are well pneumatized. Orbits: The bony orbits are grossly intact. IMPRESSION: There is no hemorrhage, mass effect, or evidence of acute territorial ischemia by CT fuentes altman. ACT 112: Negative or not required by law. Electronically signed by: Simon Ramos M.D. 10/26/2023 11:49 AM
[2023-10-26 12:05] LABS: Estimated Average Glucose 111 mg/dl; Hemoglobin A1C 5.5 % (4.5-5.6)
--- NOTE | 2023-10-26 12:12 | CT Scan Report ---
CT angio chest PE protocol CLINICAL HISTORY: PE TECHNIQUE: Multidetector row helical CT of the chest was performed with angiographic protocol. Billingsley l and sagittal reformations were obtained. Coronal and sagittal MIPS were obtained from the axial feroz a set and were submitted for review. Automated dose lowering techniques and/or adjustment according to patient size were utilized for this exam. CT DOSE: 1291.86 mGy.cm Comparison: Comparison is made to CTA chest 02/21/2014 FINDINGS: Lungs and pleura: Small bilateral pleural effusions are seen. There are underlying airspace opacities as well as smooth interlobular septal thickening. Heart and pericardium: Cardiomegaly is seen with biatrial enlargement. Vessels: No evidence of pulmonary embolism. Mediastinum and lurdes: Subcentimeter lymph nodes are seen. Chest wall and lower neck: Unremarkable. Abdomen: Unremarkable. Bones: Degenerative changes in the thoracic spine. IMPRESSION: Pulmonary edema and bilateral pleural effusions are seen. Superimposed pneumonia would be impossible to exclude. ACT 112: Negative or not required by law. Electronically signed by: Antione Lott M.D. 10/26/2023 12:10 PM
[2023-10-26 12:19] LABS: iSTAT Allen Test Pass; iSTAT Art Bld Gas pCO2 Correct 33 mmHg (35-46); iSTAT Art Bld Gas pH Corrected 7.378 (7.35-7.45); iSTAT Arterial Blood Gas HCO3 19 meg/L (19-24); iSTAT Arterial Blood Gas pCO2 33 mmHg (35-46); iSTAT Arterial Blood Gas pH 7.38 (7.35-7.45); iSTAT Arterial Blood Gas pO2 72 mmHg (80-95); iSTAT Arterial Blood Gas pO2 C 72; iSTAT Carbon Dioxide 20 mmol/L (24-31); iSTAT FiO2 40 %; iSTAT Hematocrit 36 % (37-47); iSTAT Hemoglobin 12.2 g/dl (12.0-16.0); iSTAT Potassium 3.5 mmol/L (3.3-5.0); iSTAT Site R Radial; iSTAT Sodium 137 mmol/L (135-144)
[2023-10-26] MEDS ORDERED: STAT IV Infusion **Titration per Protocol STA (12:20)
[2023-10-26] MEDS ORDERED: fentaNYL BOLUS from BAG IV PRN (12:20)
[2023-10-26] MEDS ORDERED: DEXTROSE 50% 50 ML SYRINGE IV PRN (12:30)
[2023-10-26] MEDS ORDERED: GLUCAGON FOR INJ 1 MG VIAL SQ PRN (12:30)
[2023-10-26] MEDS ORDERED: GLUCOSE 40% GEL 15 GM TUBE PO PRN (12:30)
[2023-10-26] MEDS ORDERED: CARBOHYDRATES FOR HYPOGLYCEMIA PO PRN (12:30)
[2023-10-26] MEDS ORDERED: GLUCOSE 10 TAB/TUBE PO PRN (12:30)
[2023-10-26] MEDS ORDERED: LEVALBUTEROL HCL 0.63 MG/3 ML NEB NEB PRN (12:30)
[2023-10-26] MEDS: fentaNYL citrate 2,500 MCG/250 ML BAG IV SCH (12:35)
--- NOTE | 2023-10-26 12:40 | Electrocardiogram Report ---
Test Reason : Blood Pressure : / mmHG Vent. Rate : 126 BPM Atrial Rate : 126 BPM P-R Int : 176 ms QRS Dur : 086 ms QT Int : 310 ms P-R-T Axes : 000 065 069 degrees QTc Int : 448 ms Sinus tachycardia Cannot rule out Anteroseptal infarct (cited on or before 26-OCT-2023) Abnormal ECG When compared with ECG of 21-FEB-2014 18:53, Vent. rate has increased BY 42 BPM QRS duration has increased Non-specific change in ST segment in Anterior leads Confirmed by Boo Wooten ([id number]) on 10/26/2023 12:40:02 PM Referred By: Confirmed By:Boo Wooten
[2023-10-26] MEDS: SODIUM CHLORIDE 0.9% 1,000 ML IV ONE (12:45)
[2023-10-26] MEDS ORDERED: Nursing to Pharmacy Communication SCH (12:45)
[2023-10-26] MEDS: FUROSEMIDE INJ 20 MG/2 ML VIAL IV ONE (13:01)
[2023-10-26] MEDS: FAMOTIDINE 20MG IV PUSH 20 MG/5 ML SYR IV SCH (13:01)
--- NOTE | 2023-10-26 13:03 | Critical Care Consultation ---
Date of Consultation October 26, 2023 Assessment & Plan (1) Acute hypoxic respiratory failure: (2) Endotracheally intubated: (3) Flash pulmonary edema: (4) Aspiration pneumonitis: (5) Increased anion gap metabolic acidosis: Plan 63-year-old female with a history of hypertension, hyperlipidemia and osteoarthritis who presented to the ER due to hypoxemic respiratory failure. She had a respiratory arrest while getting an MRI of her knee at an outpatient clinic. Upon presentation she was found to have mild metabolic acidosis and severe respiratory acidosis. CTA of her chest did not reveal evidence of PE but did reveal evidence of pulmonary edema and possible aspiration pneumonitis. Neurologic: Patient reportedly was moving her limbs spontaneously in the ER while intubated. CT head negative for acute findings. Will proceed with an MRI of the brain with and without contrast and an EEG. Maintain RASS of -1 with propofol and fentanyl. Daily spontaneous awakening trials. Pulmonary: Ventilator requirements are minimal at this time. Continue lung protective ventilation strategy. CT chest results reviewed which reveal diffuse groundglass opacities, bilateral lower lobe atelectasis and small pleural effusions. Suspect aspiration pneumonitis and an element of flash pulmonary edema. Will treat with 20 mg IV Lasix now and empiric antibiotics. Sputum culture sent. Will have a low threshold for bronchoscopy if no significant improvement in respiratory status over the next 12 to 24 hours. Other less likely possibilities include eosinophilic pneumonia. Cardiovascular: Patient with mild bump in troponin likely due to demand ischemia. EKG without overt ischemic findings. Will repeat EKG. Will trend troponins. Obtain echo now. Patient very hypertensive despite propofol and fentanyl. Will need to consider the addition of a nicardipine infusion if patient remains hypertensive despite sedation. As noted above, will give 20 mg of IV Lasix now. proBNP is pending. Gastrointestinal: LFTs unremarkable. Will maintain n.p.o. status today. Renal: Patient with mild anion gap acidosis and elevated glucose on arrival. Possible element of mild DKA. Lactate elevated to 4.1. Will continue to trend. Glucose has improved spontaneously. Suspect hyperglycemia related to stress. Will avoid additional fluids at this time given hypertensive state and adequate urine output. Follow urine analysis. Infectious disease: Empirically treating for possible aspiration pneumonitis/pneumonia with Zosyn and doxycycline. MRSA screen was negative. Urine Legionella antigen is pending follow sputum cultures, blood cultures and urine cultures. Hematologic: No significant issues at this time Endocrine: A1c is 5.5 as of 10/26/2023. Mild DKA possible on presentation. Maintain euglycemia. Check TSH. Lines and tubes: PIV's, Castaneda catheter and ETT tube in place VTE prophylaxis: SCDs for the time being. Low threshold to start chemoprophylaxis pending MRI brain results. CODE STATUS: Full code Family at bedside: None available at bedside Disposition: ICU Care was coordinated with ER physician, hospitalist attending, bedside nursing and RT. I have personally spent 64 minutes of critical care time in the direct management of this patient. This is a life/limb threatening event. This includes time spent evaluating patient, direct bedside care, chart review, placing orders, interpretation of diagnostic studies, discussion with consultants, bigg jamil, and family members, as well as other required patient management activities. This time is exclusive of all separately billable procedures, and teaching time and separate from and in addition to any other critical care service time. Thank you for allowing us to participate in the care of this patient. History of Present Illness Reason for Consultation: Hypoxic respiratory failure and altered mental status Attending Physician: Denys Kaminski MD History of Present Illness History is unavailable from the patient as she is currently intubated and sedated. I was able to discuss with the hospitalist service, ER service and bedside nursing. Patient has a relevant past medical history of hypertension, asthma, dyslipidemia CKD stage III who presented to the ER via EMS after being intubated at [facility] while getting an MRI of her left knee. She suddenly became short of breath and cyanotic appearing per staff. CPAP was trialed, but her symptoms and hypoxemia worsened. She did not receive sedation for the MRI. She also did not receive any IV contrast. We ordered a CT of her head which did not reveal any acute findings. CT of her chest revealed pulmonary edema, small bilateral effusions and probable superimposed aspiration pneumonitis. Troponin was mildly elevated. Lactate was elevated to 4.1. Initial ABG revealed mixed metabolic and respiratory acidosis. Subsequent ABG after intubation and modifying ventilator settings revealed pH of 7.38, pCO2 of 33 and a pO2 of 72. Other labs including urinalysis, BNP and respiratory bio fire are pending. Allergies Allergy/AdvReac Type Severity Reaction Status Date / Time CODIENE Allergy Mild GI UPSET Uncoded 10/26/23 12:52 Home Medications Medication Instructions Recorded Confirmed Type ATORVASTATIN (LIPITOR) 80 mg PO DAILY ##0 09/14/17 10/26/23 History acetaminophen 650 mg 650 mg PO Q8H PRN Pain 10/26/23 10/26/23 History tablet,extended release (Tylenol Arthritis Pain) Patient History Medical History Chronic kidney disease (CKD) Asthma Dyslipidemia Hypertension Social History Preferred Language: Venezuelan Review of Systems Review of Systems: Unobtainable due to cognitive status and Unobtainable due to endotracheal tube Physical Exam Physical Exam: Constitutional: Patient appears to be of their stated age. She is intubated sedated on propofol and fentanyl. Eyes: Pupils are equal round and reactive to light. Conjunctivae are normal. Anicteric sclera. Ears nose, mouth and throat: ET tube in place. Neck: Trachea is midline. Visual inspection is normal. Respiratory: Coarse lung sounds on the ventilator. Diminished at the bases. Cardiovascular: Regular rate and rhythm. No murmurs. No edema. Gastrointestinal: Normal bowel sounds, soft, nontender and nondistended. No hepatosplenomegaly noted. Musculoskeletal: No cyanosis. Patient is able to move all extremities. Strength is 5 out of 5 in the upper and lower extremities. Skin: No rashes, warm dry and intact. Neurologic: No obvious focal neurological deficits seen. Psychiatric: Unable to assess as she is currently intubated. Results & Data Results & Data Vital Signs (Past 12 Hours) Vital Signs Pulse Resp BP Pulse Ox O2 Del Method O2 Del Method FiO2 10/26/23 12:33 Mechanical Vent 10/26/23 12:30 Mechanical Vent 10/26/23 12:30 74 22 146/95 H 100 10/26/23 12:19 172/112 H 10/26/23 12:18 85 22 97 10/26/23 12:05 194/135 H 10/26/23 12:00 95 H 28 H 97 10/26/23 11:57 96 H 23 99 10/26/23 11:56 197/146 H 10/26/23 11:56 197/146 H 10/26/23 11:30 76 28 H 100 07/18/24 11:26 124/91 10/26/23 11:21 85 28 H 99 10/26/23 11:18 156/109 H 10/26/23 11:12 88 28 H 100 10/26/23 11:08 154/96 H 10/26/23 11:06 149/90 H 10/26/23 11:05 100 Mechanical Vent 10/26/23 11:00 136/98 10/26/23 11:00 88 28 H 100 10/26/23 10:58 142/90 H 10/26/23 10:54 93 H 28 H 100 10/26/23 10:53 90 28 H 153/90 H 98 Mechanical Vent 10/26/23 10:51 91 H 28 H 134/82 94 Mechanical Vent 10/26/23 10:48 126/84 10/26/23 10:44 127/78 10/26/23 10:42 92 H 28 H 107/83 91 Mechanical Vent 10/26/23 10:39 126 H 10/26/23 10:34 120/81 10/26/23 10:32 103 H 124/88 94 Mechanical Vent 10/26/23 10:27 110 H 28 H 141/90 H 96 Mechanical Vent 10/26/23 10:25 28 H 50 10/26/23 10:16 127 H 41 H 195/123 H 99 Mechanical Vent 10/26/23 10:16 115 H 28 H 195/123 H 95 Mechanical Vent 10/26/23 10:15 126 H 27 H 100 100 Coding Level of Care Code 78581 CRITICAL CARE 1ST 30-74M Diagnoses Acute hypoxic respiratory failure J96.01 Endotracheally intubated Z97.8 Flash pulmonary edema J81.0 Aspiration pneumonitis J69.0 Increased anion gap metabolic acidosis E87.29
[2023-10-26] MEDS: ICU Protocol for HYPERglycemia SCH (13:08)
[2023-10-26 13:09] LABS: Appearance Urine Clear (Clear); Bacteria Urine Automated None Seen (None Seen); Bilirubin Urine Negative (Negative); Blood Urine Trace (Negative); Color Urine Yellow; Glucose Urine UA Trace (Negative); Ketones Urine Negative (Negative); Leukocyte Esterase Urine Negative (Negative); Nitrite Urine Negative (Negative); Protein Urine 2+ (Negative); RBC Urine Automated 0-2 /hpf (0-2); Specific Gravity Urine 1.033 (1.000-1.030); Urobilinogen Urine Negative (Negative); WBC Urine Automated 0-5 /hpf (0-5)
[2023-10-26 13:11] LABS: iSTAT Arterial Blood Gas HCO3 18 meg/L (19-24); iSTAT Arterial Blood Gas pCO2 61 mmHg (35-46); iSTAT Arterial Blood Gas pH 7.08 (7.35-7.45); iSTAT Arterial Blood Gas pO2 324 mmHg (80-95); iSTAT Carbon Dioxide 20 mmol/L (24-31); iSTAT Hematocrit 41 % (37-47); iSTAT Hemoglobin 13.9 g/dl (12.0-16.0); iSTAT Potassium 3.6 mmol/L (3.3-5.0); iSTAT Sodium 141 mmol/L (135-144)
[2023-10-26 13:49] LABS: Adenovirus PCR Not Detected (NotDetected); Bordetella parapertussis PCR Not Detected (NotDetected); Bordetella pertussis PCR Not Detected (NotDetected); Chlamydia pneumoniae PCR Not Detected (NotDetected); Coronavirus 229E PCR Not Detected (NotDetected); Coronavirus CoV-2 (COVID19)PCR Not Detected (NotDetected); Coronavirus HKU1 PCR Not Detected (NotDetected); Coronavirus NL63 PCR Not Detected (NotDetected); Coronavirus OC43PCR Not Detected (NotDetected); Human Metapneumovirus PCR Not Detected (NotDetected); Influenza A PCR Not Detected (NotDetected); Influenza B PCR Not Detected (NotDetected); Mycoplasma pneumoniae PCR Not Detected (NotDetected); Parainfluenza Virus 1 PCR Not Detected (NotDetected); Parainfluenza Virus 2 PCR Not Detected (NotDetected); Parainfluenza Virus 3 PCR Not Detected (NotDetected); Parainfluenza Virus 4 PCR Not Detected (NotDetected); Respiratory Syncytial VirusPCR Not Detected (NotDetected); Rhinovirus/Enterovirus PCR Not Detected (NotDetected)
[2023-10-26 13:57] LABS: Troponin I High Sensitivity 363.3 pg/ml (0-14)
--- NOTE | 2023-10-26 13:59 | Communication Note ---
Date of Service: October 26, 2023 Updated patient's daughter over the phone
[2023-10-26 14:02] LABS: Thyroid Stimulating Hormone 1.331 uIu/ml (0.300-4.500)
[2023-10-26] MEDS: PIPERACILLIN/TAZOBACTAM 4.5 GM/100 ML BAG IV ONE (14:16)
[2023-10-26] MEDS: DOXYCYCLINE HYCLATE 100 MG in DEXTROSE 5% MINI-B 100 ML IV SCH (14:16)
[2023-10-26] MEDS: ENOXAPARIN INJ 40 MG/0.4 ML SYR SQ SCH (14:16)
--- NOTE | 2023-10-26 15:33 | Cardiology Consultation ---
Date of Consultation October 26, 2023 Assessment & Plan (1) Flash pulmonary edema: (2) Acute hypoxic respiratory failure: (3) Acute HFrEF (heart failure with reduced ejection fraction): Initial EKG performed today at 10:19 AM revealed sinus tachycardia 126 bpm, age- indeterminate anteroseptal infarct pattern noted with suggestion of Q wave in lead V2. Compared to previous tracing dating back to February,, poor R wave progression in lead V2 is a chronic finding, but now poor R wave progression in lead V3 present, with J-point elevation limited to lead V3. Repeat tracing performed today at 14: 14 and 1450 reveal diffuse mild J-point elevation, R wave progression in lead V2 now normal. Lactic acidosis noted with lactate level 4.1 on presentation and 3.2 on repeat Initial high-sensitivity troponin of 33.3 PG per mL was mildly elevated, and subsequently 5 hours later and has trended up to [address] angiogram of the chest reveals no pulmonary embolism, but pulmonary edema and bilateral pleural effusions noted. Echocardiogram performed at bedside revealed diffuse left ventricular hypokinesis and involving the apical and mid segments of the left ventricle with relative sparing of the basal segments. The left ventricular systolic function is moderate to severely reduced, LVEF in the range of 30-35%, grade II diastolic dysfunction, no significant valvular heart disease. Echocardiogram findings are consistent with LAD or multivessel coronary territory ischemia/injury versus a stress-induced cardiomyopathy with left apical ballooning pattern. Case discussed with Dr. Castellon of critical care medicine and Dr. Bray of interventional cardiology. I recommend proceeding with invasive diagnostic coronary angiography to exclude culprit coronary stenosis. Although patient's story and echocardiogram may very well correlate with a stress-induced cardiomyopathy, given the dynamic changes on EKG with noted diffuse J-point elevation, excellent coper coronary stenosis indicated. Discussed findings and plan with patient's daughter, Lyric Oseguera phone [phone] in ICU prior to transfer to the cardiac catheterzation lab. Patient's , Yahir Armenta, phone [phone] to the hospital. I spent a total of 65 minutes on the date of service in preparation, delivery, and documentation of the care provided to this patient, excluding any time spent in the performance of separately billed services. History of Present Illness Attending Physician: Denys Kaminski MD History of Present Illness Ana Armenta is a 63-year-old female seen in cardiology consultation per the request of for the evaluation of congestive heart failure and abnormal findings on echocardiogram. History is obtained from review of records. Patient is currently intubated, she is awake and answering yes and no questions. She has a history of dyslipidemia for which she takes atorvastatin, otherwise no past cardiac history. Today she was having an outpatient MRI of the knee at the [facility]. She reportedly rang the nursing bill due to shortness of breath. The MRI was stopped and she was found to be cyanotic with witnessed respiratory distress. She was evaluated by anesthesia from the outpatient surgery center there and remained short of breath despite BiPAP support. Ultimately she underwent endotracheal tube intubation and was transferred by EMS to the emergency room at [facility]. Allergies Allergy/AdvReac Type Severity Reaction Status Date / Time codeine AdvReac Gastrointestinal Verified 10/26/23 13:42 Upset Home Medications Medication Instructions Recorded Confirmed Type ATORVASTATIN (LIPITOR) 80 mg PO DAILY ##0 09/14/17 10/26/23 History acetaminophen 650 mg 650 mg PO Q8H PRN Pain 10/26/23 10/26/23 History tablet,extended release (Tylenol Arthritis Pain) Patient History Medical History Chronic kidney disease (CKD) Asthma Dyslipidemia Hypertension Social History Smoking Status: Unknown if ever smoked Hx Alcohol Use: No (Unknown) Hx Substance Use: No (Unknown) Preferred Language: Slovenian [employer] 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 Current Living Situation: Spouse Current Living Situation Comment: Per [facility] Records Assistive Devices: Denture - Upper, Denture - Lower and Glasses Assistive Devices Comment: Reading glasses Review of Systems Review of Systems: Unobtainable due to endotracheal tube Physical Exam Physical Exam: Temp Pulse Resp BP Pulse Ox O2 Del Method FiO2 37.2 C 60 23 122/82 100 Mechanical Vent 40 10/26/23 12:30 10/26/23 15:09 10/26/23 15:09 10/26/23 14:51 10/26/23 15:09 10/26/23 13:19 10/26/23 14:33 General: no acute distress and stated age Eyes: conjunctiva are pink and non-injected, sclera clear Neck: normal jugular venous pulse, no hepatojugular reflux Chest: normal shape and normal respiratory effort Lungs: Decreased breath sounds bilaterally at the bases Cardiac Exam: - regular heart sounds, no murmurs, rubs, or gallops, no jugular venous distention Abdomen: abdomen soft, non-tender, no abnormal masses and no hepatosplenomegaly Musculoskeletal: no gait disturbance, no weakness Extremities: no edema and no cyanosis Neuro:awake, And following commands Results & Data Laboratory Results Cardiac Enzymes 10/26/23 10/26/23 Range/Units 10:20 13:16 AST 17 (13-39) U/L Troponin I High Sens 33.3 H 363.3 H* D (0-14) pg/ml CBC 10/26/23 Range/Units 10:20 WBC 15.17 H (4.8-10.8) K/ul RBC 4.78 (4.20-5.40) M/uL Hgb 13.2 (12.0-16.0) g/dl Hct 42.8 (37.0-47.0) % Plt Count 283 (130-400) K/uL Neut # (Auto) 6.39 (1.40-6.50) K/uL Lymph # (Auto) 7.50 H (1.20-3.40) K/uL Russell # (Auto) 0.88 H (0.11-0.59) K/uL Eos # (Auto) 0.22 (0.00-0.50) K/uL Baso # (Auto) 0.10 (0.00-0.20) K/uL Comprehensive Metabolic Panel 10/26/23 Range/Units 10:20 Sodium 140 (136-145) mmol/L Potassium 3.8 (3.5-5.1) mmol/L Chloride 106 (98-107) mmol/L Carbon Dioxide 19 L (21-32) mmol/L BUN 15 (6-23) mg/dl Creatinine 1.13 (0.6-1.2) mg/dl Glucose 321 H* (70-99(Fasting)) mg/dl Calcium 8.4 L (8.6-10.3) mg/dl AST 17 (13-39) U/L ALT 14 (7-52) U/L Alkaline Phosphatase 90 (34-104) U/L Total Protein 7.2 (6.0-8.3) gm/dl Albumin 3.9 (3.4-5.0) gm/dl Intake and Output 10/26/23 10/26/23 10/26/23 06:59 14:59 22:59 Intake Total 161.636 / 161.636 Output Total 600 / 600 Balance -438.364 / -438.364 Intake: IV 161.636 / 161.636 Piperacillin/Tazobactam 4.5 gm 100 / 100 In 100 ml @ 200 mls/hr IV NOW ONE Rx#:[id number] fentaNYL citrate 2,500 mcg In 7.417 / 7.417 250 ml @ 25 MCG/HR 2.5 mls/hr IV .Q96H [facility] Rx#:[id number] propofoL 1,000 mg In 100 ml @ 54.219 / 54.219 10 MCG/KG/MIN 5.418 mls/hr IV . [id number] [facility] Rx#:[id number] Output: Urine Amount (Catheter) 600 / 600 Castaneda/Indwelling 600 / 600 Other: Weight 90.3 kg Weight Measurement Method Built in [facility] Patient Weight 10/27/23 06:59 Weight 90.3 kg
[2023-10-26] MEDS: MIDAZOLAM HCL 1 MG/ML 2ML VIAL IV PRN (15:36)
[2023-10-26] MEDS: fentaNYL citrate PF 100 MCG/2 ML VIAL ONE (16:19)
[2023-10-26] MEDS: MIDAZOLAM HCL 1 MG/ML 2ML VIAL ONE (16:19)
[2023-10-26] MEDS: niCARdipine HCL INJ 2.5 MG/ML 10 ML AMP ONE (16:20)
[2023-10-26] MEDS: HEPARIN (PORCINE) 1000 UNIT/ML 10 ML (CATH LAB USE ONLY) ONE (16:21)
[2023-10-26] MEDS: NITROGLYCERIN/D5W 100MCG/ML 20ML SYR ONE (16:21)
[2023-10-26] MEDS: IODIXANOL (VISIPAQUE) 320 MG/ML 100ML IV ONE (16:21)
--- NOTE | 2023-10-26 16:26 | Cardiac Catheterization ---
[facility] Data: Integrity Consultant Cardiac Status Clinical evaluation leading to the procedure CAD Presenation: Non STEMI Heart Failure: NYHA Class: CCS III Diagnostic Physicians Name: Moe Bray MD Closure Device Recommendations: Medical Therapy and/or Counseling Cardiac Cath Procedure Full Procedure Date October 26, 2023 Pre-Procedure Diagnosis Pre-Procedure Diagnosis: Non STEMI and Cardiomyopathy AUC Score AUC Score: 8 Post-Procedure Diagnosis Post-Procedure Diagnosis: Normal Coronary Arteries Procedure(s) Performed Procedure(s) Performed: Coronary Angiography and Left Heart Cath Senior Loan Processor Moe Bray MD Ham Stripper(s) Ayla Estimated Blood Loss Estimated Blood Loss: 5 Medication(s) Medication(s): Lidocaine 1%, Nicardipine and Nitroglycerin Summary of Findings Indication: Acute heart failure, new severe LV dysfunction, elevated troponin Access: 6 Fr slender right radial artery under ultrasound guidance Catheters: [place] Findings: LM -normal caliber, no significant disease LAD -medium caliber, no significant disease, distal vessel tapers prior to apex. Gives off medium caliber high diagonal without significant disease. Circumflex -medium caliber, no significant disease. Large bifurcating OM1 without disease. RCA -dominant, medium caliber, no significant disease LVEDP -27 Arterial Closure: TR band Summary: 1. Angiographically normal coronary arteries 2. Elevated intracardiac filling pressure (LVEDP 27). Recommendations: Continued diuresis per Dr. Liang, ICU team. Hemodynamics Rest Ao:: 123/63/93 Final Ao: 111/60/76 LV: 120/27 Recommendations Recommendations: Medical Therapy and/or Counseling Specimens Specimens: None Radiation Exposure (mGy) 764 Contrast (mls) 50 Anesthesia Moderate [id number] Procedural Complication(s) None Disposition ICU I attest to the content of the Intraoperative Record and any orders documented therein. Any exceptions are noted below. [facility] Card Cath Procedure Codes Cardiac Catheterization Procedure 1: Cardiovascular Cath Procedures: 32411 Coronaries and LHC (+/-LV) Therapeutic Services & Ancillary Procedure 1: Cardiovascular Tx and Anc Procedures: 81966 Ultrasonic Guidance Vascular Access PG Care Time/CCT Total # of Minutes Spent Total Time Spent with Patient: Total time spent is greater than 50% in coordination of care (as documented) at patient's floor/unit and/or counseling patient:
[2023-10-26] MEDS ORDERED: INSULIN ASPART PER UNIT CHARGE SC SCH (16:30)
--- NOTE | 2023-10-26 16:50 | Communication Note ---
Date of Service: October 26, 2023 Cardiac catheterization revealed angiographically normal coronary arteries, left ventricular end-diastolic pressure elevated at 27 mmHg. Presentation likely consistent with a stress-induced cardiomyopathy, Takotsubo syndrome. Patient received 20 mg IV furosemide at 1301 today. Continue ventilator support which would be weaned as tolerated. Patient received contrast for both CT angiogram of the chest and coronary angiography today, will follow renal function and electrolytes as continue diuresis plan, likely with next dose tomorrow. Sinus bradycardia and sinus rhythm in the range of 50 to 60 bpm noted, therefore we will hold off on adding beta-lacey. Hold off on YONATHAN inhibitor, ARB, Entresto with normal blood pressure and contrast exposure pending reassessment of hemodynamics and renal function over the next 24 hours. Results discussed with patient's family, daughter , Lyric , , Yahir.
--- NOTE | 2023-10-26 16:59 | XRay Report ---
KUB CLINICAL HISTORY: OG placement COMPARISON STUDY: None. FINDINGS: The tip of the orogastric tube is within the body of the stomach. Visualized bowel gas shanna jeyson is normal. Bibasilar opacities are incidentally noted. There are trace bilateral pleural effusion s. IMPRESSION: Tip of orogastric tube within the body of the stomach. ACT 112: Negative or not required by law. Electronically signed by: Kurt Wallace M.D. 10/26/2023 4:57 PM
[2023-10-26] MEDS: INSULIN ASPART PER UNIT CHARGE SC SCH (18:09)
[2023-10-26] MEDS: PIPERACILLIN/TAZOBACTAM 4.5 GM in DEXTROSE 5% MINI-B 100 ML IV SCH (18:10)
--- OUTSIDE RECORDS SUMMARY | 2023-10-26 18:34 | External Medical Summary | Summary of Care ---
Author Name Unknown Organization [facility] Address [address] [place] [address] Phone [phone] Care Team Providers Care Fleece Tier Name Role Phone Ariane Lu DO Primary Care Provider [phone] Reason for Referral * Precert (Within 10 days (routine)) - Pending Review Specialty Diagnoses / Procedures Referred By Contac t Referred To Contact Radiology Diagnoses Primary osteoarthritis of one knee, left Positive Linette test of left knee, initial encounter Procedures MRI KNEE LEFT WO CONTRAST Amanda Dupont MD [address] [place] [address] Referral ID Status Reason Start Date Expiration Date V isits Requested Visits Authorized [id number] Pending Review 10/02/2023 999 999 Reason for Visit * Reason Comments NEW PATIENT Left knee Encounter Details Date Type Department Care Team (Latest Contact Info) Description 10/02/2023 9:00 AM EDT Office Visit Orthopaedics [facility] [address] [place] [address] Amanda Dupont MD [address] [place] [address] Primary osteoarthritis of one knee, left*; Positive Linette test of left knee, initial encounter Allergies Active Allergy Reactions Criticality Noted Date Comments Morphine And Codeine 11/10/2004 stomach pains documented as of this encounter (statuses as of 10/02/2023) Medications Medication Sig Dispensed Refills Start Date End Date Status albuterol (PROAIR HFA) 108 (90 BASE) MCG/ACT inhalerIndications:M ild persistent asthma without complication Use two puffs four times a day with spacer 1 Inhaler 3 04/15/2016 Active Additional Information Patient not taking.Reported on 09/27/2022 Lisinopril 40 MG TabletIndications:Es sential hypertension with goal blood pressure less than 140/90 Take 1 Tab by mouth daily. 90 Tab 3 12/18/2018 Active Additional Information Patient not taking.Reported on 09/27/2022 atorvaSTATin (LIPITOR) 80 MG TabletIndications:Dy slipidemia, goal LDL below 130 Take 1 Tab by mouth daily. 90 Tab 3 03/29/2019 Active Lisinopril-hydroCHLO ROthiazide 20-12.5 MG Oral TabletIndications:Es sential hypertension with goal blood pressure less than 140/90 TAKE TWO TABLETS DAILY IN THE MORNING 180 Tab 10/14/2020 Active Additional Information Patient not taking.Reported on 09/27/2022 Acetaminophen ER 650 MG Oral Tablet Extended Release (Tylenol 8 Hour Arthritis Pain) Take 1 Tablet by mouth every 8 hours as needed. Active documented as of this encounter (statuses as of 10/02/2023) Active Problems Problem Noted Date Diagnosed Date Chronic kidney disease, stage 3a 10/19/2020 Overview: Per CKD protocol Dyslipidemia, goal LDL below 130 09/20/2013 Asthma, mild persistent 05/07/2012 HTN, goal below 140/90 04/04/2011 ADVANCE DIRECTIVE INFORMATION 11/10/2004 Overview: No, Advance Directive brochure given to patient. documented as of this encounter (statuses as of 10/02/2023) Resolved Problems Problem Noted Date Diagnosed Date Resolved Date Kidney disease, chronic, sta ge III (GFR 30-59 ml/min) 09/14/2015 10/22/2020 Overview: Per CKD protocol #1 General medical exam 02/06/2015 017 Bronchitis, complicated 07/18/201401/10 Anemia 05/08/2014 02/06/2015 Acute renal insufficiency 03/04/2014 Bacterial pneumonia 02/28/2014 02/07/20 15 Encounter for examination fo r normal comparison and control in clinical research program 04/30/2012 09/21/2012 Overview: Diagnosis changed due to Research Module. Go to Snapshot for study details. Dyslipidemia, goal to be determined 06/28/2011 09/20/2013 Elevated blood pressure, situational 04/01/2011 04/04/2011 Acute bronchitis, complicated 06/05/2009 06/18/2009 BENIGN HYPERTENSION 11/10/2004 04/04/20 11 Tobacco use disorder 11/10/2004 016 Lipidemia 06/08/2012 documented as of this encounter (statuses as of 10/02/2023) Immunizations Name Administration Dates Next Due COVID-19 mRNA, LNP-s, No Pre serve, 2-Dose Series (Pfizer) 07/09/2020,06/18/2020 PPD 12/18/2018 Pneumococcal Polysaccharide PPV23 (Pneumovax) 04/01/2011 Seasonal Influenza, PF, 6 M & above, IM , (FluLaval or Fluzone) 12/24/2022,12/26/2020,12/21/2019,12/18,01/13/2017 Seasonal Influenza, Quadriva lent Hd (Fluzone Hd) 12/25/2021 Seasonal Influenza, Quadriva lent, No Preserve, IM 02/01/2018,01/23/2016,01/24/2015 Seasonal Influenza, Split, I IV3, With Preserve, Inj 01/11/2014,12/29/2012,05/07/2012,01/27,01/21/2010 TDAP (age 10 and older)(Boostrix) 08/09/2020 TDAP, Age 7 and older, IM (Adacel) 04/01/2011 documented as of this encounter Social History Tobacco Use Types Packs/Day Years Used Date Smoking Tobacco: Former Cigarettes 1 37 0 12/24/1976 - 12/24/2013 Smokeless Tobacco: Never Alcohol Use Standard Drinks/Week Comments Yes 0 (1 standard drink = 0.6 oz pur e alcohol) occ PHQ-2 Answer Date Recorded PHQ Adult Total Score 0 08/11/2020 Hunger Vital Sign Answer Date Recorded Worried About Running Out of Food in the Last Ye ar Never true 08/11/2020 Ran Out of Food in the Last Year Never true 08/11/2020 Sex and Gender Information Value Date Recorded Sex Assigned at Not on file Gender Identity Not on file Sexual Orientation Not on file Job Start Date Occupation Industry Not on file Not on file Not on file documented as of this encounter Progress Notes * Amanda Dupont MD - 10/02/2023 8:54 AM EDT Ana Armenta is a 63 year old female who presents to [facility] for left knee injury/pain. Ana Armenta is here unaccompanied History: Chief Complaint Patient presents with NEW PATIENT Left knee Nursing Notes: Ankita Parikh, MED ASSIST 10/02/23 0856 Signed Patient presents today for left knee. States there is no pain, just pressure. Feels like 'there is something off' in the knee, Ana Armenta reports that left knee pain started about 2 months ago. She denies any injury. Initially had pain mostly along the medial aspect of the knee. Was seen in orthopedic urgent care 08/07/2023. Was advised on Voltaren gel ice and physical therapy. Here today for 6-8 week follow up after PT. She reports that she was had some improvement in pain but now knee feels like there is a lot of pressure and she still has trouble moving it. Has been able to wean off of crutches and walk but cannot fully extend her knee. No locking or catching. Does feel like it is going to give out on her but has not. No numbness tingling or weakness. Review of systems: All others negative except those noted above in HPI. Review of patient's allergies indicates: Allergen Reactions Morphine And Codeine stomach pains Current Outpatient Medications Medication Sig Dispense Refill albuterol (PROAIR HFA) 108 (90 BASE) MCG/ACT inhaler Use two puffs four times a day with spacer (Patient not taking: Reported on 09/27/2022) 1 Inhaler 3 Lisinopril 40 MG Tablet Take 1 Tab by mouth daily. (Patient not taking: Reported on 09/27/2022) 90 Tab 3 atorvaSTATin (LIPITOR) 80 MG Tablet Take 1 Tab by mouth daily. 90 Tab 3 Lisinopril-hydroCHLOROthiazide 20-12.5 MG Oral Tablet TAKE TWO TABLETS DAILY IN THE MORNING (Patient not taking: Reported on 09/27/2022) 180 Tab 0 Acetaminophen ER 650 MG Oral Tablet Extended Release (Tylenol 8 Hour Arthritis Pain) Take 1 Tablet by mouth every 8 hours as needed. No current facility-administered medications for this visit. Past Medical History: Diagnosis Date Benign neoplasm of colon 07/28/09 mild to moderate diverticulosis,polyps q20--ylacduwznodg tissue, repeat in2 years Benign neoplasm of colon 09/16/2011 COLONOSCOPY FLEXIBLE PROXIMAL DIAGNOSTIC performed by Tayler Wheatley MD at ENDOSCOPY [facility], path shows hyperplastic polyps repeat in 5 years Hemorrhoids 08/11/2003 HTN, goal below 140/90 Lipidemia Menopause age 44 Varicella without complication age 4 Patient Active Problem List Diagnosis ADVANCE DIRECTIVE INFORMATION HTN, goal below 140/90 Asthma, mild persistent Dyslipidemia, goal LDL below 130 Chronic kidney disease, stage 3a (HCC) Past Surgical History: Procedure Laterality Date COLONOSCOPY W/ LESION REMOVAL, SNARE 07/28/2009 done mild to moderate diverticulosis,polyps i54--pzezlzbilfkv tissue, repeat in2 years COLONOSCOPY, DIAGNOSTIC (RECTUM) 09/16/2011 hyperplastic polyps, repeat 5 yrs/COLONOSCOPY FLEXIBLE PROXIMAL DIAGNOSTIC performed by Tayler Wheatley MD at ENDOSCOPY [facility], path shows hyperplastic polyps repeat in 5 years COLONOSCOPY, DIAGNOSTIC (RECTUM) 01/26/2017 COLONOSCOPY FLEXIBLE PROXIMAL DIAGNOSTIC performed by Xochitl Parisi MD at ENDOSCOPY [facility] LIGATE/CUT OVIDUCT(S) 1985 REMOVE CERVIX CONE W/LOOP ELECTRODE 07/1999 Dr Prabhakar, [facility] Social History Socioeconomic History Marital status: Spouse name: Yahir Number of children: 2 Years of education: 12 Highest education level: Not on file Occupational History Occupation: [employer] Employer: [employer] [address] Comment: works 5-1:30 am Tobacco Use Smoking status: Former Current packs/day: 0.00 Average packs/day: 1 pack/day for 37.0 years (37.0 ttl pk-yrs) Types: Cigarettes Start date: 12/24/1976 Quit date: 12/24/2013 Years since quittin.7 Smokeless tobacco: Never Vaping Use Vaping status: Never Used Substance and Sexual Activity Alcohol use: Yes Comment: occ Drug use: No Sexual activity: Yes Partners: Male control/protection: Surgical Other Topics Concern Not on file Social History Narrative born in [place], life long resident 11/26/2004 medical record review CMSA BP 06/23/04 158/100; 180/100 09/27/2004: chol 243/51/182/169TG, parvo virus index 1.9H, 03/21/91: EEG normal : normal EKG and Holter 10/03/91: MRI c-spine disc protusion C5-6, l-spine normal Social Determinants of Health Financial Resource Strain: Not on file Food Insecurity: No Food Insecurity (08/11/2020) Hunger Vital Sign Worried About Running Out of Food in the Last Year: Never true Ran Out of Food in the Last Year: Never true Transportation Needs: Not on file Social Connections: Unknown (10/02/2023) Social Connections How often do you feel lonely or isolated from those around you? (Adult - for ages 18 years and over): Not on file Housing Stability: Not on file Family History Problem Relation Name Age of Onset Heart Disorder Father Hypertension Father Diabetes Mother Stroke Father Family History; none relevant to today's HPI Objective: Physical Exam There were no vitals filed for this visit. Estimated body mass index is 34.54 kg/m as calculated from the following: Height as of 08/11/20: 1.6 m (5' 3"). Weight as of 09/27/22: 88.5 kg (195 lb). General: generally well-nourished and in no acute distress HEENT: normocephalic, atraumatic, sclera anicteric. Psych: mood and affect normal , cooperative Card: Peripheral pulses: normal in affected extremity (s) Resp: equal chest rise, non-tachypneic, non-labored breathing Skin: no rash, normal Neuro: Sensation: normal on affected extremity (s) MSK \\antalgic gait Knee Exam, Bilateral Inspection: No obvious deformity, no redness, swelling, warmth, bruising, abrasion. Palpation: tenderness to palpation medial joint line patellar facets ROM: Flexion/Neutral/Extension: L - 100/10, R - 120/0/0 Popliteal Angle (Hamstring Flexibility): 30 Bilateral Strength: R- Strength: Extension - 5/5 Flexion - 5/5 L - Strength: Extension - 5/5 Flexion - 5/5 Special Tests: Negative valgus and varus stress test at 30 Negative Bonnie's, negative anterior and posterior drawer Positive Linette's left Radiology (I have personally reviewed the following films): EXAM LT KNEE XR KNEE 4 OR MORE VIEWS - 08/07/2023 9:05 am HISTORY injury COMPARISON None TECHNIQUE Radiography of the LT KNEE was performed. FINDINGS No acute fracture or dislocation. Question a small effusion. Mild tricompartmental degenerative changes. IMPRESSION IMPRESSION 1. No acute osseous finding. Assessment and Plan: ICD-10-CM 1. Primary osteoarthritis of one knee, left M17.12 2. Positive Linette test of left knee, initial encounter S83.207A 63-year-old female seen today for left knee pain. Has findings on both exam and radiographs of osteoarthritis however concern for possible symptomatic meniscus tear as well given her lack of full extension despite 6 weeks of physical therapy and maintaining a home exercise program. Recommend MRI for further evaluation. MRI was ordered. I will see her back 2-3 days after MRI. The above assessment and plan were discussed at length. All questions were answered, and the patient expressed understanding. Amanda Dupont MD Primary Care Sports Medicine [facility] Orthopa[facility] [address] [address] documented in this encounter Nursing Notes * Ankita Parikh MED ASSIST - 10/02/2023 8:55 AM EDT Patient presents today for left knee. States there is no pain, just pressure. Feels like 'there is something off' in the knee, documented in this encounter Plan of Treatment Upcoming Encounters Date Type Department Care Team (Late st Contact Info) Description 10/26/2023 9:00 AM EDT Imaging Radiology [facility] [address] [place] [address] 10/30/2023 9:30 AM EDT Office Visit Orthopaedics [facility] [address] [place] [phone] Amanda Dupont MD [address] [place] [address] Scheduled Orders Name Type Priority Associated Diagnoses Orde r Schedule MRI KNEE LEFT WO CONTRAST Medical Imaging Routine Primary osteoarthritis of one knee, left Positive Linette test of left knee, initial encounter Expected: 10/02/2023, Expires: 10/31/2024 Scheduled Procedures Name Priority Associated Diagnoses Date/Ti me COLONOSCOPY FLEXIBLE PROXIMAL DIAGNOSTIC Recall History of colon polyps Health Maintenance Due Date Last Done Comments Cologuard 2003 Fecal Occult Blood Test 2003 Sigmoidoscopy 2003 Lung Cancer Screening 2008 Zoster Vaccines (1 of 2) 2008 Pneumococcal Vaccine: 65+ Years (2 of 2 - PCV) 04/01/2012 04/01/2011 Albumin/Creatinine Ratio 08/04/2018 018, 05/14/2016, 02/06/2015 Mammogram 02/09/2020 02/08/2019, 01/10, 07/08/2016, Additional history exists GFR 04/17/2021 10/15/2020, 01/10, 02/06/2019, Additional history exists Depression Screening 08/11/2021 08/11/2020 CKD HGB USE SMARTSET 09437 10/15/202110/15, 02/06/2019, 12/17/2018, Additional history exists CKD PHOS USE SMARTSET 13505 10/15/2021 07/0 11/2020, 02/06/2019, 12/17/2018, Additional history exists Colonoscopy 01/26/2022 01/26/2017, 01/08, 09/16/2011, Additional history exists Colorectal Cancer Screening 01/26/2022 COVID-19 Vaccine ( season) 2022 07/09/2020, 06/18/2020 DXA Scan 2023 Lipid Panel 10/15/2025 10/15/2020, 09/0 12/2018, 06/19/2017, Additional history exists DTaP,Tdap,and Td Vaccines (3 - Td or Tdap) 08/09/2030 08/09/2020, 04/01/2011 Cervical Cancer Screening Discontinued Pap Smear Discontinued 07/08/2016, 05/12 (Refused) RETIRED - COLONOSCOPY-EVERY 5 YRS AGES 18-100 Discontinued 01/26/2017, 01/26/2017, 09/16/2011, Additional history exists Influenza Vaccine (FLU shot) Completed 12/24/2022, 12/25/2021, 12/26/2020, Additional history exists GARDASIL-HPV IMMUNIZATION SERIES Aged Out No longer eligible based on patient's age to complete this topic HPV/Co-Test Discontinued Hepatitis B Aged Out No longer eligi ble based on patient's age to complete this topic MENINGOCOCCAL (MENACTRA/MENVEO) Aged Out No longer eligible based on patient's age to complete this topic documented as of this encounter Medical Devices Not on filedocumented as of this encounter Visit Diagnoses Diagnosis Primary osteoarthritis of one knee, left- Primary Positive Linette test of left knee, initial encounter documented in this encounter Care Teams Fleece Tier Relationship Specialty Start Date End Date Ariane Lu DO [address] [place] [address] PCP - General Family Medicine 04/15/16 documented as of this encounter
--- OUTSIDE RECORDS SUMMARY | 2023-10-26 18:34 | External Medical Summary | Summary of Care ---
Author Name Unknown Organization [facility] Address [address] [place] [address] Phone [phone] Care Team Providers Care Production Support Analyst Name Role Phone Ariane Lu DO Primary Care Provider [phone] Reason for Referral * Evaluate & Treat - Unlimited Visits (Within 10 days (routine)) - Pending Review Specialty Diagnoses / Procedures Referred By Becca hahn Referred To Contact Physical Therapy / Physical Medicine And Rehab Diagnoses Primary osteoarthritis of left knee Soledad Wade PA-C [address] [place] [address] Referral ID Status Reason Start Date Expiration Date Visits Requested Visits Authorized [id number] Pending Review Specialty Services Required 08/07/[phone] Question Answer Referral Priority Within 10 days (routine) Where should this appointment be scheduled? External Comments Increase ROM Gait training Reason for Visit * Reason Comments NEW PATIENT L knee Encounter Details Date Type Department Care Team (Latest Contact Info) Description 08/07/2023 8:20 AM EDT Office Visit Orthopaedics [facility] [address] [place] [address] Soledad Wade PA-C [address] [place] [address] Osteoarthritis of left patellofemoral joint*; Acute pain of left knee Allergies Active Allergy Reactions Criticality Noted Date Comments Morphine And Related 11/10/2004 stomach pains documented as of this encounter (statuses as of 08/07/2023) Medications Medication Sig Dispensed Refills Start Date [...] TABLETS DAILY IN THE MORNING 180 Tab 0 10/14/2020 Active Additional Information Patient not taking.Reported on 09/27/2022 Acetaminophen ER 650 MG Oral Tablet Extended Release (Tylenol 8 Hour Arthritis Pain) Take 1 Tablet by mouth every 8 hours as needed. 0 Active documented as of this encounter (statuses as of 08/07/2023) Active Problems Problem Noted Date Diagnosed Date Chronic kidney disease, stage 3a 10/19/2020 Overview: Per CKD protocol Dyslipidemia, goal LDL below 130 09/20/2013 Asthma, mild persistent 05/07/2012 HTN, goal below 140/90 04/04/2011 ADVANCE DIRECTIVE INFORMATION 11/10/2004 Overview: No, Advance Directive brochure given to patient. documented as of this encounter (statuses as of 08/07/2023) Resolved Problems Problem Noted Date Diagnosed Date Resolved Date Kidney disease, chronic, sta ge III (GFR 30-59 ml/min) 09/14/2015 10/22/2020 Overview: Per CKD protocol #1 General medical exam 02/06/2015 017 Bronchitis, complicated 07/18/2014 10 Anemia 05/08/2014 02/06/2015 Acute renal insufficiency 03/04/2014 [...] as of this encounter (statuses as of 08/07/2023) Immunizations Name Administration Dates Next Due COVID-19 [...] 01/11/2014,12/29/2012,05/07/2012,01/27,01/21/2010 TDAP (age 10 and older)(Boostrix) 08/09/2020 TDAP (age 11 and older)(Adacel) 04/01/2011 documented as of this encounter Social [...] on file documented as of this encounter Patient Instructions * Patient Instructions* Soledad Wade PA-C - 08/07/2023 9:30 AM EDT Try over the counter topical Voltaren gel (Diclofenac Sodium) up to 4 times per day documented in this encounter Progress Notes * Soledad Wade PA-C - 08/07/2023 9:21 AM EDT Ana Armenta is a 63 year old female who presents for consultation to [facility] for left knee injury/pain. Consult requested by Self. Ana Armenta is here unaccompanied History: Ana Armenta reports that left knee pain started 08/05/23. She denies any injury. States she was walking and felt the knee give way. She complains of medial knee pain. She is wearing a hinged knee brace and using crutches. Reports difficulty with range of motion. Notes associated swelling. Reports continued instability. She denies any previous left knee injuries. Review of systems: All others negative except those noted above in HPI. Review of patient's allergies indicates: Allergen Reactions Morphine And Related stomach pains Current Outpatient Medications Medication Sig [...] of colon 07/28/09 mild to moderate diverticulosis,polyps l07--qwnnhcjzfddm tissue, repeat in2 years Benign neoplasm of colon 09/16/2011 COLONOSCOPY FLEXIBLE PROXIMAL DIAGNOSTIC performed by Tayler Wheatley MD at [facility], path shows hyperplastic polyps repeat in 5 years Hemorrhoids 08/11/2003 HTN, goal below 140/90 Lipidemia Menopause age 44 Varicella without complication age 4 Patient Active Problem List Diagnosis Code ADVANCE DIRECTIVE INFORMATION HTN, goal below 140/90 I10 Asthma, mild persistent J45.30 Dyslipidemia, goal LDL below 130 E78.5 Chronic kidney disease, stage 3a (HCC) N18.31 Past Surgical History: Procedure Laterality Date COLONOSCOPY W/ LESION REMOVAL, SNARE 07/28/2009 done mild to moderate diverticulosis,polyps x78--vzkgxodrdcao tissue, repeat in2 years COLONOSCOPY, DIAGNOSTIC (RECTUM) 09/16/2011 hyperplastic polyps, repeat 5 yrs/COLONOSCOPY FLEXIBLE PROXIMAL DIAGNOSTIC performed by Tayler Wheatley MD at [facility], path shows hyperplastic polyps repeat in 5 years COLONOSCOPY, DIAGNOSTIC (RECTUM) 01/26/2017 COLONOSCOPY FLEXIBLE PROXIMAL DIAGNOSTIC performed by Xochitl Parisi MD at [facility]COPY [facility] LIGATE/CUT OVIDUCT(S) 1985 REMOVE CERVIX CONE W/LOOP ELECTRODE 07/1999 Dr Prabhakar, [facility] Social History Socioeconomic History Marital status: Spouse name: Yahir Number of children: 2 Years of education: 12 Highest education level: Not on file Occupational History 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 Employer: [employer] Comment: works 5-1:30 am Tobacco Use Smoking status: Former Current packs/day: 0.00 Average packs/day: 1 pack/day for 37.0 years (37.0 ttl pk-yrs) Types: Cigarettes Start date: 12/24/1976 Quit date: 12/24/2013 Years since quittin.6 Smokeless tobacco: Never Vaping Use Vaping Use: Never used Substance and Sexual Activity Alcohol use: Yes Comment: occ Drug use: No Sexual activity: Yes Partners: Male control/protection: Surgical Other Topics Concern Not on file Social History Narrative born in [place], life long resident 11/26/2004 medical record review [...] Never true Transportation Needs: Not on file Physical Activity: Not on file Stress: Not on file Social Connections: Not on file Intimate Partner Violence: Not on file Housing Stability: Not on file Family History Problem Relation Age of Onset Heart Disorder Father Hypertension [...] Neuro: Sensation: normal on affected extremity (s) MSK: Gait/station/stance: antalgic gait without an assistive device on smooth flat indoor surface. Knee Exam, Bilateral Inspection: Small effusion. No obvious deformity, no redness,, warmth, bruising, abrasion. Palpation: tenderness to palpation at medial joint line on the left ROM: Flexion/Neutral/Extension: L - 100/20/10, R - 120/0/0 Strength: R- Strength: Extension - 5/5 Flexion - 5/5 L - Strength: Extension - 5/5 Flexion - 5/5 Special Tests: ACL: Bonnie - negative Bilateral Ant Drawer - negative Bilateral Post Drawer - negative Bilateral MCL: Medial Opening @ 30: unable to assess secondary to pain Bilateral LCL: Lateral Opening @ 30: negative Bilateral Meniscus Tests: Linette -positive on the left Radiology (I have personally reviewed the following films): X-ray of the left knee was reviewed with patient. Those x-rays reveal marginal osteophytes most notable in the patellofemoral compartment. Acute fracture. Assessment and Plan: Osteoarthritis of left patellofemoral joint (Primary) - PHYSICAL THERAPY REFERRAL OP Knee pain - XR KNEE 4 OR MORE VIEWS Advised trial of PT and Voltaren gel. Discussed benefits of regular low impact exercise. Recommend follow up 8 weeks it symptoms persist Follow Up: Return in about 8 weeks (around 10/02/2023) for Follow-up with Dr Pandya, Dr Maldonado, or Dr Whittaker. | For: Follow-up with Dr Pandya, Dr Maldonado, or Dr Panfilo Wade PA-C [address] [place] [address] documented in this encounter Nursing Notes * Esther Soares ATC - 08/07/2023 8:50 AM EDT L knee. DOI 08/05/23. Walking and twisting motion. Reports medial joint pain and pain at VMO. Alternating heat and ice, using tylenol. Has a brace on and using crutches for ambulation. Pain with flexion and extension. Visible swelling. Difficulty with sleeping due to pain. documented in this encounter Plan of Treatment Upcoming Encounters Date Type Department Care Team (Late st Contact Info) Description 10/02/2023 9:00 AM EDT Office Visit Orthopaedics [address] [place] [address] Amanda Dupont MD [address] [place] [address] Pending Results Name Type Priority Associated Diagnoses Date /Time XR KNEE 4 OR MORE VIEWS Medical Imaging Routine Acute pain of left knee 08/07/2023 9:05 AM EDT Scheduled Procedures Name Priority Associated Diagnoses Date/Ti me COLONOSCOPY FLEXIBLE PROXIMAL DIAGNOSTIC Recall History of colon polyps Scheduled Referrals Name Type Priority Associated Diagnoses Orde r Schedule PHYSICAL THERAPY REFERRAL OP Referral Within 10 days (routine) Osteoarthritis of left patellofemoral joint Ordered: 08/07/2023 Health Maintenance Due Date Last Done Comments [...] Screening 08/11/2021 08/11/2020 CKD HGB USE SMARTSET 10341 10/15/202110/15, 02/06/2019, 12/17/2018, Additional history exists CKD PHOS USE SMARTSET 36340 10/15/2021 07/0 11/2020, 02/06/2019, 12/17/2018, Additional history exists Colonoscopy 01/26/2022 01/26/2017, 01/08, 09/16/2011, Additional history exists Colorectal Cancer Screening 01/26/2022 COVID-19 Vaccine ( season) 2022 07/09/2020, 06/18/2020 DXA Scan 2023 Lipid Panel 10/15/2025 10/15/2020, 12/2018, 06/19/2017, Additional history exists DTaP,Tdap,and Td [...] as of this encounter Visit Diagnoses Diagnosis Osteoarthritis of left patellofemoral joint- Primary Acute pain of left knee documented in this encounter Care Teams Production Support Analyst Relationship Specialty Start Date End Date Ariane Lu DO [address] [place] [address] PCP - General Family Medicine 04/15/16 documented as of this encounter
--- OUTSIDE RECORDS SUMMARY | 2023-10-26 22:52 | External Medical Summary | Summary of Care ---
Author Name Unknown Organization [facility] Address [address] [place] [address] Phone [phone] Care Team Providers Care Press Operator Automatic Name Role Phone Ariane Lu DO Primary Care Provider [phone] Reason for Visit * Reason Onset Date Comments Mycode - Thinking About It But No Form Provided 10/26/2023 Encounter Details Date Type Department Care Team (Late st Contact Info) Description 10/26/2023 Orders Only Outcomes Research Department [address] [place] [address] Clementina Stuart CHRA MyCode Nonconsent Documentation Allergies Active Allergy Reactions Criticality Noted Date Comments Morphine And Codeine 11/10/2004 stomach pains documented as of this encounter (statuses as of 10/26/2023) Medications Medication Sig Dispensed Refills Start Date [...] as of this encounter (statuses as of 10/26/2023) Active Problems Problem Noted Date Diagnosed Date Chronic kidney disease, stage 3a 10/19/2020 Overview: Per CKD protocol Dyslipidemia, goal LDL below 130 09/20/2013 Asthma, mild persistent 05/07/2012 HTN, goal below 140/90 04/04/2011 ADVANCE DIRECTIVE INFORMATION 11/10/2004 Overview: No, Advance Directive brochure given to patient. documented as of this encounter (statuses as of 10/26/2023) Resolved Problems Problem Noted Date Diagnosed Date [...] as of this encounter (statuses as of 10/26/2023) Immunizations Name Administration Dates Next Due COVID-19 [...] as of this encounter Progress Notes * Clementina Stuart CHRA - 10/26/2023 9:16 AM EDT Александр Nonconsent Documentation Ana Armenta was approached in the clinic regarding participation in the [employer] and did not consent. documented in this encounter Plan of Treatment Upcoming Encounters Date Type Department Care Team (Late st Contact Info) Description 10/30/2023 9:30 AM EDT Office Visit Orthopaedics [facility] [address] [place] [address] Amanda Dupont MD [address] [place] [id number] Scheduled Procedures Name Priority Associated Diagnoses Date/Ti [...] Screening 08/11/2021 08/11/2020 CKD HGB USE SMARTSET 73628 10/15/202110/15, 02/06/2019, 12/17/2018, Additional history exists CKD PHOS USE SMARTSET 08690 10/15/2021 07/0 11/2020, 02/06/2019, 12/17/2018, Additional history exists Colonoscopy 01/26/2022 01/26/2017, 01/08, 09/16/2011, Additional history exists Colorectal Cancer Screening 01/26/2022 COVID-19 Vaccine ( season) 2022 07/09/2020, 06/18/2020 DXA Scan 2023 *SPIROMETRY ONCE FOR ASTHMA-ADULT 10/22/2023 Influenza Vaccine (FLU shot) (#1) 2023 12/24/2022, 12/25/2021, 12/26/2020, Additional history exists Lipid Panel 10/15/2025 10/15/2020, 09/0 12/2018, 06/19/2017, Additional history exists DTaP,Tdap,and Td Vaccines (3 - Td or Tdap) 08/09/2030 08/09/2020, 04/01/2011 *BASELINE EKG FOR HTN Completed 04/22/2011 Cervical Cancer Screening Discontinued Pap Smear Discontinued 07/08/2016, 05/12 (Refused) RETIRED - COLONOSCOPY-EVERY 5 YRS AGES 18-100 Discontinued 01/26/2017, 01/26/2017, 09/16/2011, Additional history exists HPV (Gardasil) Vaccine Aged Out No lo nger eligible based on patient's age to complete this topic HPV/Co-Test Discontinued Hepatitis B Vaccine Aged Out No longe r eligible based on patient's age to complete this topic MENINGOCOCCAL (MENACTRA/MENVEO) Aged Out No longer eligible based on patient's age to complete this topic documented as of this encounter Medical Devices Not on filedocumented as of this encounter Care Teams Press Operator Automatic Relationship Specialty Start Date End Date Ariane Lu DO [address] [place] [address] PCP - General Family Medicine 04/15/16 documented as of this encounter
[2023-10-27] MEDS: carvediloL 6.25 MG TAB PO SCH (12:30)
[2023-10-27] MEDS: LABETALOL HCL IV 5 MG/ML 20ML IV ONE (12:49)
--- NOTE | 2023-10-27 15:40 | Communication Note ---
Date of Service: October 27, 2023 hemodynamically stable and extubated. see progress note in physical chart for further details. will transfer to pcu status. abx dc'ed as cultures negative. findings on ctc were likely flash pulm edema. Coding Level of Care Code None
[2023-10-27] MEDS: hydrALAZINE HCL 20 MG/ML VIAL ONE (15:49)
--- NOTE | 2023-10-27 15:57 | Electrocardiogram Report ---
Test Reason : Blood Pressure : / mmHG Vent. Rate : 058 BPM Atrial Rate : 058 BPM P-R Int : 216 ms QRS Dur : 086 ms QT Int : 500 ms P-R-T Axes : 016 062 068 degrees QTc Int : 490 ms Sinus bradycardia with 1st degree A-V block Septal infarct (cited on or before 26-OCT-2023) Abnormal ECG When compared with ECG of 26-OCT-2023 10:19, NE interval has increased Vent. rate has decreased BY 68 BPM Confirmed by Boo Wooten ([id number]) on 10/27/2023 3:56:54 PM Referred By: REFERRED SELF Confirmed By:Boo Wooten
--- NOTE | 2023-10-27 15:58 | Electrocardiogram Report ---
Test Reason : Blood Pressure : / mmHG Vent. Rate : 057 BPM Atrial Rate : 057 BPM P-R Int : 248 ms QRS Dur : 080 ms QT Int : 508 ms P-R-T Axes : -02 068 069 degrees QTc Int : 494 ms Sinus bradycardia with 1st degree A-V block Prolonged QT Abnormal ECG When compared with ECG of 26-OCT-2023 14:14, (unconfirmed) No significant change was found Confirmed by Boo Wooten ([id number]) on 10/27/2023 3:58:22 PM Referred By: REFERRED SELF Confirmed By:Boo Wooten
[2023-10-27] MEDS: METOPROLOL TARTRATE 25 MG TAB PO SCH (16:33)
--- NOTE | 2023-10-27 19:29 | Communication Note ---
Date of Service: October 27, 2023 Hand written progress noted performed this am due to outage of electronic record. Pt extubated. Comfortable. No respiratory distress. Hypertensive, BP 218/91, HR 65 Plan: lisinopril 10 mg PO x 1 now, next dose in am labetalol 10 mg IV x 1 now Ativan 0.5 mg PO x 1 now. Coreg 6.25 mg due at 2100 Discussed with nursing.
[2023-10-27] MEDS: LABETALOL HCL IV 5 MG/ML 20ML IV STA (19:45)
[2023-10-27] MEDS: lisinopril 10 MG TAB PO ONE (19:46)
[2023-10-27] MEDS: LORazepam 0.5 MG TAB PO STA (19:46)
[2023-10-27 20:03] LABS: BUN Creatinine Ratio 15.5 (10-20); Creatinine Clr Calc Pharmacy 52.6 ml/min; Est GFR (African American) 57.2 ml/min; Est GFR (Non-African American) 49.4 ml/min; Magnesium 1.8 mg/dl (1.7-2.4); Phosphorus 3.6 mg/dl (2.5-4.9); Potassium 3.4 mmol/L (3.5-5.1)
[2023-10-27] MEDS ORDERED: NITROGLYCERIN 2% OINTMENT 30GM TUBE EXT SCH (21:15)
[2023-10-27] MEDS: hydrALAZINE HCL 20 MG/ML VIAL IV STA (21:37)
[2023-10-27 22:23] LABS: Basophils # (auto) 0.04 K/uL (0.00-0.20); Basophils % (auto) 0.4 %; Eosinophils # (auto) 0.05 K/uL (0.00-0.50); Eosinophils % (auto) 0.5 %; Hematocrit (blood only) 37.5 % (37.0-47.0); Hemoglobin 12.4 g/dl (12.0-16.0); Immature Granulocytes # (auto) 0.02 K/uL (0.01-0.20); Immature Granulocytes % (auto) 0.2 %; Lymphocytes # (auto) 2.39 K/uL (1.20-3.40); Lymphocytes % (auto) 23.6 %; Mean Corpuscular Hemoglobin 27.9 pg (25.0-34.0); Mean Corpuscular Hgb Conc 33.1 g/dL (32.0-36.0); Mean Corpuscular Volume 84.5 fL (80.0-100.0); Mean Platelet Volume 12.7 fL (9.4-12.4); Monocytes # (auto) 0.75 K/uL (0.11-0.59); Monocytes % (auto) 7.4 %; Neutrophils # (auto) 6.87 K/uL (1.40-6.50); Neutrophils % (auto) 67.9 %; Platelet Count 188 K/uL (130-400); RDW Standard Deviation 43.1 fL (36.4-46.3); Red Blood Count 4.44 M/uL (4.20-5.40); White Blood Count 10.12 K/ul (4.8-10.8)
[2023-10-28 04:39] LABS: Basophils # (auto) 0.04 K/uL (0.00-0.20); Basophils % (auto) 0.6 %; Eosinophils # (auto) 0.11 K/uL (0.00-0.50); Eosinophils % (auto) 1.5 %; Hematocrit (blood only) 33.8 % (37.0-47.0); Hemoglobin 10.9 g/dl (12.0-16.0); Immature Granulocytes # (auto) 0.02 K/uL (0.01-0.20); Immature Granulocytes % (auto) 0.3 %; Lymphocytes # (auto) 1.82 K/uL (1.20-3.40); Lymphocytes % (auto) 25.3 %; Mean Corpuscular Hemoglobin 27.7 pg (25.0-34.0); Mean Corpuscular Hgb Conc 32.2 g/dL (32.0-36.0); Mean Corpuscular Volume 85.8 fL (80.0-100.0); Mean Platelet Volume 12.9 fL (9.4-12.4); Monocytes # (auto) 0.65 K/uL (0.11-0.59); Neutrophils # (auto) 4.55 K/uL (1.40-6.50); Neutrophils % (auto) 63.3 %; Platelet Count 160 K/uL (130-400); RDW Coefficient of Variation 14.3 % (11.5-14.5); RDW Standard Deviation 44.7 fL (36.4-46.3); Red Blood Count 3.94 M/uL (4.20-5.40); White Blood Count 7.19 K/ul (4.8-10.8)
[2023-10-28 04:53] LABS: Albumin Globulin Ratio 1.2 (0.9-2); Albumin Level 3.6 gm/dl (3.4-5.0); BUN Creatinine Ratio 14.9 (10-20); Bilirubin,Total 0.8 mg/dl (0.2-1.0); Creatinine Clr Calc Pharmacy 64.9 ml/min; Est GFR (African American) 73.8 ml/min; Est GFR (Non-African American) 63.7 ml/min; Phosphorus 4.2 mg/dl (2.5-4.9); Potassium 3.5 mmol/L (3.5-5.1); Total Protein 6.6 gm/dl (6.0-8.3)
[2023-10-28] MEDS: lisinopril 10 MG TAB PO SCH (07:26)
--- NOTE | 2023-10-28 09:10 | XRay Report ---
XR chest 1V portable CLINICAL HISTORY: follow up CHF TECHNIQUE: Single frontal radiograph of the chest was obtained. Comparison: Comparison is made to chest radiograph 10/26/2023 FINDINGS: No lines and tubes are seen. Cardiomegaly is noted. The aortic arch is calcified. The lungs are clear . No evidence of pleural effusion or pneumothorax. IMPRESSION: No acute chest disease. Cardiomegaly is noted. ACT 112: Negative or not required by law. Electronically signed by: Antione Lott M.D. 10/28/2023 9:08 AM
[2023-10-28] MEDS: NITROGLYCERIN 2% OINTMENT 30GM TUBE EXT PRN (12:06)
--- NOTE | 2023-10-28 12:37 | Hospitalist Progress Note ---
Date of Service October 28, 2023 Assessment & Plan (1) Acute hypoxic respiratory failure: Plan: Acute Hypoxic Respiratory Failure s/p Intubation Severe Sepsis, Flash Pulmonary Edema - Patient meets severe sepsis criteria 2/2 tachypnea, WBC>12K, present source of infection and lactic acidosis. Patient was over at [facility] getting an MRI of her left knee this morning when she suddenly became short of breath during the imaging study. According to staff at [facility], the patient was "blue" in appearance and subsequently had to be intubated by an anesthesia provider who was called to MRI. Initially staff tried CPAP, but unfortunately that did not help. Per EMS, the patient did not receive any medications or sedation prior to the MRI. She also did not receive any IV contrast. Patient received succinylcholine, propofol and Versed from anesthesiology for the intubation. she was admitted to ICU started with intravenous Zosyn and doxycycline for suspicion of sepsis/infection also received intravenous Lasix for florid pulmonary edema appreciate [employer] input and recommendation- status post extubation on 10/27/2023 MRSA screen has been negative, sputum culture is growing light normal milo and the blood cultures are pending BioFire is negative antibiotics have been changed to doxycycline only clinically much better today and will continue current medications (2) Acute HFrEF (heart failure with reduced ejection fraction): Plan: secondary to reduced EF admitted with flash pulmonary edema received doses of intravenous Lasix on admission further dosing of diuretics as per the manager energy (3) Severe sepsis: Plan: lactate is elevated at 4.1 secondary to hypotension and hypoxia (4) Elevated troponin: Plan: initial troponin was 33.3 and that went up to 570 likely has non-ST elevation LA status post cardiac cath- with unremarkable coronaries echo of the heart showed- diffuse left ventricular hypokinesis involving the apical and mid mid segments with relative sparing of the basal segments, EF 30 to 35%, grade 2 diastolic dysfunction and there is no significant valvular disease appreciate cardiology input and recommendation (5) Hypertension: Plan: blood pressure remains elevated Appears pt was on 40mg lisinopril daily in the past. Not currently taking any antihypertensive meds per chart review. 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 Holding statin therapy for now; fasting lipid panel in AM - follow. CKD Stage III Cr 1.0 on admission, appears baseline Cr ~1.1-1.4 per chart review. Repeat CMP in AM - monitor renal function. Avoid nephrotoxic meds when able. Yahir Armenta [Patient's ]: #[phone] Lyric Oseguera [Patient's Daughter]: #[phone] DVT Prophylaxis: SQ Lovenox Code Status: FULL CODE - Code status not on file, patient will be full code at this time 2/2 inability to communicate. Admission and Anticipated Discharge Date Admission Date: October 26, 2023 Subjective 10/28/2023 the patient was seen and examined in ICU she was admitted with acute hypoxic respiratory failure which required ventilatory support also underwent cardiac cath on admission which did not show any significant CAD status post extubation on she has been generally weak and noted to have very high blood pressure Review of Systems Review of Systems: all systems reviewed and are unremarkable except as noted below Physical Exam Physical Exam: lying in bed without any acute distress Constitutional: well developed, well nourished, + ill appearing and + obese Eyes: PERRL, conjunctivae normal, anicteric sclerae ENMT: external ear and nose normal, oropharynx normal Neck: trachea midline, no thyromegaly Respiratory: no respiratory distress Auscultation: + diminished lung sounds and + crackles ( minimal bibasilar crackles) Cardiovascular: Rate/Rhythm: regular rate, regular rhythm and + bradycardic Heart Sounds: normal S1 and normal S2; no murmur Extremities: + edema ( trace edema bilaterally) Gastrointestinal (Abdomen): Inspection/Auscultation: normal bowel sounds; abdomen not distended Percussion/Palpation: abdomen soft; abdomen nontender Musculoskeletal: no acute arthritis involving any of the joints Neurologic: normal touch/pain/proprioception and moves all extremities; no focal motor deficits Lymphatic: no cervical or axillary lymphadenopathy Results & Data Results & Data Vital Signs (Past 12 Hours) Vital Signs Temp Pulse Pulse Resp BP BP Pulse Ox 10/28/23 11:00 36.6 C 59 L 18 184/85 H 96 10/28/23 09:00 48 L 22 173/73 H 96 10/28/23 08:00 10/28/23 08:00 62 10/28/23 08:00 62 158/64 H 10/28/23 07:00 36.8 C 59 L 22 199/84 H 96 10/28/23 06:01 62 17 162/67 H 10/28/23 05:00 21 179/75 H 10/28/23 04:15 60 21 10/28/23 04:01 176/78 H 93 10/28/23 03:15 52 L 17 10/28/23 03:01 54 L 18 151/64 H 10/28/23 02:00 52 L 20 172/74 H 93 10/28/23 01:00 53 L 16 159/70 H 94 O2 Del Method 10/28/23 11:00 Room Air 10/28/23 09:00 Room Air 10/28/23 08:00 Room Air 10/28/23 08:00 10/28/23 08:00 10/28/23 07:00 Room Air 10/28/23 06:01 Room Air 10/28/23 05:00 Room Air 10/28/23 04:15 10/28/23 04:01 Room Air 10/28/23 03:15 Room Air 10/28/23 03:01 Room Air 10/28/23 02:00 Room Air 10/28/23 01:00 Room Air Laboratory Results Short CBC 10/27/23 10/28/23 Range/Units 03:40 04:06 WBC 10.12 7.19 (4.8-10.8) K/ul Hgb 12.4 10.9 L (12.0-16.0) g/dl Hct 37.5 33.8 L (37.0-47.0) % Plt Count 188 160 (130-400) K/uL BMP 10/27/23 10/28/23 03:40 04:06 Sodium 139 140 Potassium 3.4 L 3.5 Chloride 106 108 H Carbon Dioxide 23 24 BUN 18 14 Creatinine 1.16 0.94 Glucose 130 H 103 H Calcium 9.0 9.0 Liver Function 10/27/23 10/28/23 Range/Units 03:40 04:06 Total Bilirubin Cancelled 0.8 AST Cancelled 19 ALT Cancelled 20 Alkaline Phosphatase Cancelled 67 Albumin Cancelled 3.6 Medications Administered Current Inpatient Medications Carvedilol (Carvedilol 6.25 Mg Tab) 6.25 mg PO BID [facility] Stop: 11/26/23 12:24 Last Admin: 10/28/23 07:26 Dose: 6.25 mg Enoxaparin Sodium (Enoxaparin Inj 40 Mg/0.4 Ml Syr) 40 mg SQ Q24H [facility] Stop: 11/25/23 13:59 Last Admin: 10/27/23 14:27 Dose: 40 mg Lisinopril (Lisinopril 10 Mg Tab) 10 mg PO QAM [facility] Stop: 11/27/23 08:59 Last Admin: 10/28/23 07:26 Dose: 10 mg Nitroglycerin (Nitroglycerin 2% Ointment 30gm Tube) 1 inch EXT Q6H PRN PRN Reason: Blood Pressure - High Stop: 11/27/23 11:29 Last Admin: 10/28/23 12:06 Dose: 1 inch
[2023-10-28] MEDS: lisinopril 10 MG TAB PO STA (12:46)
[2023-10-28 13:06] LABS: A calco-baum cmplx NotReported Not Detected (NotDetected); Bact fragilis Not Reported Not Detected (NotDetected); Blood Culture Id Panel PCR Panel Negative (NotDetected); C auris Not Reported Not Detected (NotDetected); Calbicans Not Reported Not Detected (NotDetected); Candida glabrata Not Reported Not Detected (NotDetected); Candida krusei Not Reported Not Detected (NotDetected); Cneoformans/gatti Not Reported Not Detected (NotDetected); Cparapsilosis Not Reported Not Detected (NotDetected); E cloacae compx Not Reported Not Detected (NotDetected); Efaecalis Not Reported Not Detected (NotDetected); Efaecium Not Reported Not Detected (NotDetected); Enterobacterales Not Reported Not Detected (NotDetected); Escherichia coli Not Reported Not Detected (NotDetected); H influenzae Not Reported Not Detected (NotDetected); K aerogenes Not Reported Not Detected (NotDetected); Koxytoca Not Reported Not Detected (NotDetected); Kpneumoniae grp Not Reported Not Detected (NotDetected); Lmonocyt Not Reported Not Detected (NotDetected); N meningitidis Not Reported Not Detected (NotDetected); P aeruginosa Not Reported Not Detected (NotDetected); Proteus spp Not Reported Not Detected (NotDetected); Salmonella spp Not Reported Not Detected (NotDetected); Staph lugdunensis Not Reported Not Detected (NotDetected); Staph spp. Not Reported Not Detected (NotDetected); Staphaureus Not Reported Not Detected (NotDetected); Staphepi Not Reported Not Detected (NotDetected); Stenmaltophilia Not Reported Not Detected (NotDetected); Strep agal(GrpB) Not Reported Not Detected (NotDetected); Strep pneum Not Reported Not Detected (NotDetected); Strep pyog (GrpA) Not Reported Not Detected (NotDetected); Strep spp Not Reported Not Detected (NotDetected)
[2023-10-28] MEDS: PIPERACILLIN/TAZOBACTAM 4.5 GM in DEXTROSE 5% MINI-B 100 ML IV ONE (15:12)
[2023-10-28] MEDS: LORazepam 0.5 MG TAB PO STA (15:13)
[2023-10-28] MEDS: SPIRONOLACTONE 25 MG TAB PO SCH (15:20)
[2023-10-28] MEDS: PIPERACILLIN/TAZOBACTAM 4.5 GM in DEXTROSE 5% MINI-B 100 ML IV SCH (15:41)
--- NOTE | 2023-10-28 16:48 | Cardiology Progress Note ---
Date of Service October 28, 2023 Assessment & Plan (1) Takotsubo syndrome: (2) Acute HFrEF (heart failure with reduced ejection fraction): (3) Hypertension: (4) Bacteremia: Plan Extubated a.m. of 10/27/2023. No bradycardia since prior to extubation. Postextubation blood pressures have trended up which is uncharacteristic for her based on her outpatient history. No longer overtly volume overloaded based on physical examination and chest x- ray, but likely has some degree of residual pulmonary congestion given severe left ventricular systolic dysfunction noted on presentation, and noted hypertension. Proceed with another dose of furosemide 20 mg IV x 1 now, supplement potassium Carvedilol 6.25 mg twice daily initiated on 10/27/2023, will increase to 12.5 mg daily. Lisinopril titrated to 20 mg Continue topical nitroglycerin Spironolactone 25 mg by mouth daily starting today Patient received a dose of oral Ativan this afternoon. 1/2 Blood cultures positive for gram negative bacilli. Repeat blood cultures obtained, urine culture obtained. Castaneda catheter in place. Agree with empiric treatment with Zosyn. As noted, administer furosemide to intake/output slightly negative to maintain negative fluid balance. Continue subcutaneous Lovenox for DVT prophylaxis. Repeat chemistry panel tomorrow. Admission and Anticipated Discharge Date Admission Date: October 26, 2023 Subjective Patient seen in cardiology follow-up. Sitting in the bedside chair with her , Yahir sitting at her side. No distress. Mentating well. Telemetry reveals sinus rhythm in the 80s. Ongoing hypertension noted with systolic blood pressures trending up to the 180s and 200 range again today. Physical Exam Physical Exam: General: no acute distress and stated age Eyes: conjunctiva are pink and non-injected, sclera clear Neck: normal jugular venous pulse, no hepatojugular reflux Chest: normal shape and normal respiratory effort Lungs: Decreased breath sounds bilaterally at the bases Cardiac Exam: - regular heart sounds, no murmurs, rubs, or gallops, no jugular venous distention Abdomen: abdomen soft, non-tender, no abnormal masses and no hepatosplenomegaly Musculoskeletal: no gait disturbance, no weakness Extremities: no edema and no cyanosis Neuro:awake, And following commands Results & Data Vital Signs (Past 12 Hours) Vital Signs Temp Pulse Pulse Resp BP BP Pulse Ox 10/28/23 16:00 58 L 10/28/23 14:48 55 L 188/92 H 10/28/23 14:30 54 L 198/82 H 10/28/23 14:12 58 L 18 10/28/23 13:30 57 L 20 10/28/23 13:00 57 L 24 10/28/23 12:14 179/74 H 10/28/23 12:09 68 20 10/28/23 12:01 158/62 H 10/28/23 12:00 62 19 10/28/23 11:21 53 L 20 10/28/23 11:00 184/85 H 10/28/23 11:00 36.6 C 59 L 18 184/85 H 96 10/28/23 10:51 48 L 20 10/28/23 10:06 56 L 25 H 10/28/23 10:00 182/87 H 10/28/23 10:00 182/87 H 10/28/23 09:57 58 L 17 10/28/23 09:09 50 L 16 10/28/23 09:00 173/73 H 10/28/23 09:00 48 L 22 173/73 H 96 10/28/23 08:57 51 L 17 10/28/23 08:03 66 21 10/28/23 08:01 158/64 H 10/28/23 08:00 10/28/23 08:00 62 10/28/23 08:00 62 158/64 H 10/28/23 07:48 65 17 10/28/23 07:09 49 L 17 10/28/23 07:01 199/84 H 10/28/23 07:01 199/84 H 10/28/23 07:00 36.8 C 59 L 22 199/84 H 96 10/28/23 06:57 53 L 19 10/28/23 06:01 62 17 162/67 H 10/28/23 05:00 21 179/75 H O2 Del Method 10/28/23 16:00 10/28/23 14:48 10/28/23 14:30 10/28/23 14:12 10/28/23 13:30 10/28/23 13:00 10/28/23 12:14 10/28/23 12:09 10/28/23 12:01 10/28/23 12:00 10/28/23 11:21 10/28/23 11:00 10/28/23 11:00 Room Air 10/28/23 10:51 10/28/23 10:06 10/28/23 10:00 10/28/23 10:00 10/28/23 09:57 10/28/23 09:09 10/28/23 09:00 10/28/23 09:00 Room Air 10/28/23 08:57 10/28/23 08:03 10/28/23 08:01 10/28/23 08:00 Room Air 10/28/23 08:00 10/28/23 08:00 10/28/23 07:48 10/28/23 07:09 10/28/23 07:01 10/28/23 07:01 10/28/23 07:00 Room Air 10/28/23 06:57 10/28/23 06:01 Room Air 10/28/23 05:00 Room Air Laboratory Results Cardiac Enzymes 10/27/23 10/28/23 Range/Units 03:40 04:06 AST Cancelled 19 Lipids 10/27/23 Range/Units 03:40 Triglycerides Cancelled Cholesterol Cancelled HDL Cholesterol Cancelled Cholesterol/HDL Ratio Cancelled CBC 10/27/23 10/28/23 Range/Units 03:40 04:06 WBC 10.12 7.19 (4.8-10.8) K/ul RBC 4.44 3.94 L (4.20-5.40) M/uL Hgb 12.4 10.9 L (12.0-16.0) g/dl Hct 37.5 33.8 L (37.0-47.0) % Plt Count 188 160 (130-400) K/uL Neut # (Auto) 6.87 H 4.55 (1.40-6.50) K/uL Lymph # (Auto) 2.39 1.82 (1.20-3.40) K/uL [place] # (Auto) 0.75 H 0.65 H (0.11-0.59) K/uL Eos # (Auto) 0.05 0.11 (0.00-0.50) K/uL Baso # (Auto) 0.04 0.04 (0.00-0.20) K/uL Comprehensive Metabolic Panel 10/27/23 10/28/23 Range/Units 03:40 04:06 Sodium 139 140 (136-145) mmol/L Potassium 3.4 L 3.5 (3.5-5.1) mmol/L Chloride 106 108 H (98-107) mmol/L Carbon Dioxide 23 24 (21-32) mmol/L BUN 18 14 (6-23) mg/dl Creatinine 1.16 0.94 (0.6-1.2) mg/dl Glucose 130 H 103 H (70-99(Fasting)) mg/dl Calcium 9.0 9.0 (8.6-10.3) mg/dl AST Cancelled 19 ALT Cancelled 20 Alkaline Phosphatase Cancelled 67 Total Protein Cancelled 6.6 Albumin Cancelled 3.6 Intake and Output 10/28/23 10/28/23 10/28/23 06:59 14:59 22:59 Intake Total 50 / 1201.5 100 / 100 Output Total 350 / 1260 Balance -300 / -58.5 100 / 100 Intake: IV 100 / 100 Piperacillin/Tazobactam 4.5 gm 100 / 100 In Dextrose 5% Mini-B 100 ml @ 200 mls/hr IV NOW ONE Rx#: [id number] Oral 50 / 993 Output: Urine Amount (Catheter) 350 / 1260 Castaneda/Indwelling 350 / 1260 Other: Weight 90.1 kg Weight Measurement Method Built in [facility]
[2023-10-28] MEDS: FUROSEMIDE INJ 20 MG/2 ML VIAL IV ONE (16:56)
[2023-10-28] MEDS: POTASSIUM CHLORIDE CRTAB 20 MEQ TABCR PO STA (16:56)
[2023-10-28] MEDS: hydrALAZINE HCL 20 MG/ML VIAL IV STA (18:31)
[2023-10-28] MEDS: carvediloL 12.5 MG TAB PO SCH (20:36)
[2023-10-29 07:16] LABS: Basophils # (auto) 0.05 K/uL (0.00-0.20); Basophils % (auto) 0.6 %; Eosinophils # (auto) 0.17 K/uL (0.00-0.50); Eosinophils % (auto) 2.2 %; Hematocrit (blood only) 34.3 % (37.0-47.0); Immature Granulocytes # (auto) 0.02 K/uL (0.01-0.20); Immature Granulocytes % (auto) 0.3 %; Lymphocytes # (auto) 1.51 K/uL (1.20-3.40); Lymphocytes % (auto) 19.3 %; Mean Corpuscular Hemoglobin 27.5 pg (25.0-34.0); Mean Corpuscular Hgb Conc 32.1 g/dL (32.0-36.0); Mean Corpuscular Volume 85.8 fL (80.0-100.0); Mean Platelet Volume 12.5 fL (9.4-12.4); Monocytes # (auto) 0.78 K/uL (0.11-0.59); Neutrophils % (auto) 67.6 %; Platelet Count 197 K/uL (130-400); RDW Coefficient of Variation 14.3 % (11.5-14.5); RDW Standard Deviation 44.4 fL (36.4-46.3); White Blood Count 7.83 K/ul (4.8-10.8)
[2023-10-29 07:42] LABS: Calcium 9.7 mg/dl (8.6-10.3); Creatinine Clr Calc Pharmacy 63.8 ml/min; Est GFR (African American) 73.8 ml/min; Est GFR (Non-African American) 63.7 ml/min; Potassium 3.8 mmol/L (3.5-5.1)
[2023-10-29] MEDS: lisinopril 20 MG TAB PO SCH (09:39)
[2023-10-29] MEDS: POTASSIUM CHLORIDE CRTAB 20 MEQ TABCR PO ONE (12:24)
[2023-10-29] MEDS: MAGNESIUM SULFATE / D5W 1 GM/100 ML BAG IV SCH (12:24)
--- NOTE | 2023-10-29 12:33 | Cardiology Progress Note ---
Date of Service October 29, 2023 Assessment & Plan (1) Takotsubo syndrome: (2) Acute HFrEF (heart failure with reduced ejection fraction): (3) Hypertension: (4) Bacteremia: Plan 10/29/2023: -Does not appear hypervolemic on exam. -Patient has put out 2.7 L urine output. Weight is down 7 lb total. Responding well to IV diuresis. -Bradycardic since increasing Coreg to 12.5 mg BID. Asymptomatic. -BP is improving but continues to be elevated. -Mag 1.8, Will give 2 gm IV Magnesium Sulfate -Potassium 3.8, Will give an additional Potassium 20 meq ONCE. -Urine culture is pending. -Continue Spironolactone 25 mg daily -Continue Lisinopril 20 mg daily -Echo completed today. -Castaneda removed today. Needs hat placed in toilet for monitoring UO. -Please document accurate I&Os -Monitor and replace electrolytes as needed. (Recommend K > 4.0 & Mag > 2.0) -Please record daily weights -2L fluid restriction -2 gm sodium restriction -Please apply compression stockings or jeanmarie wraps first thing in the morning and remove at night. Repeat daily. -Encourage patient to elevate lower extremities throughout the day. Case discussed with Dr. Liang I spent a total of 35 minutes on the date of service in preparation, delivery, and documentation of the care provided to this patient, excluding any time spent in the performance of separately billed services. PASTOR Damon Department of Cardiology, [facility] This chart was completed in part utilizing Speech Voice Recognition Software. Grammatical errors, random word insertions, pronoun errors, and incomplete sentences are an occasional consequence of this system due to software limitations, ambient noise, and hardware issues. Any formal questions or concerns about the content, text, or information contained within the body of this dictation should be directly addressed to the provider for clarification. Admission and Anticipated Discharge Date Admission Date: October 26, 2023 Supervising Physician Co-Signing Physician Notes Attending attestation: Case reviewed with the advanced practitioner. I have personally performed a history and physical examination on the patient. I have reviewed the advanced practitioner's documentation on the date of service referenced in note, and I agree with, and take responsibility for the plan of care. Subjective: Patient sitting in bedside chair. She has been transferred out of the intensive care unit and is in room 211. Family visiting. Patient mentating well. Feels well. Castaneda catheter removed a.m. of 10/29/2023. Telemetry reveals sinus bradycardia in the range of 48-50 beats per minute at rest in the chair. First-degree AV block. No tachyarrhythmias. Exam: Cardiovascular: Regular rhythm, no murmurs, no edema Pulm: Clear to auscultation bilaterally Data: 1/2 blood cultures obtained on 10/26/2023 yielding gram-negative bacilli Urine culture pending Repeat echocardiogram performed today 10/29/2023 with noted normalization of the LVEF, now in the range of 60 to 65%, improved compared to 30-35% on 10/26/2023 EKG 10/27/2023 at 722 and interpreted independently: Marked sinus bradycardia at 40 bpm, first-degree AV block, diffuse T wave inversions consistent with stress- induced cardiomyopathy. Cardiac catheterization 10/26/2023: Angiographically normal coronary arteries Impression/ Plan: Catecholamine/stress-induced cardiomyopathy/Takotsubo syndrome having presented with respiratory failure and need for mechanical ventilation. Pulmonary edema. Normal volume status at present. Had been hypertensive since extubation on hospital day 2. Multiple medications initiated and titrated. Blood pressure improved, but bradycardia noted. Reduce carvedilol back to 6.25 mg twice daily. Continue lisinopril 20 mg daily, spironolactone 25 mg daily. Magnesium replaced this morning. Topical nitroglycerin discontinued and now a as needed medication. Patient now on Zosyn for abnormal blood culture. May need occasional furosemide to keep intake/output even. I spent a total of 20[ minutes coordinating, documenting, and providing care for this patient excluding time spent in the performance of separately billed services or time spent by another provider. Edgar Liang, Subjective Patient seen in cardiology follow-up. Daughter at bedside. Telemetry reveals SB 58 bpm. Overnight as low as 40-50s. BP elevated again today. Patient denies all cardiovascular concerns this morning. Review of Systems Review of Systems: All systems reviewed & are unremarkable except as noted in HPI & below Physical Exam Physical Exam: General: no acute distress and stated age Eyes: conjunctiva are pink and non-injected, sclera clear Neck: normal jugular venous pulse, no hepatojugular reflux Chest: normal shape and normal respiratory effort Lungs: Decreased breath sounds bilaterally at the bases Cardiac Exam: - regular heart sounds, no murmurs, rubs, or gallops, no jugular venous distention Abdomen: abdomen soft, non-tender, no abnormal masses and no hepatosplenomegaly Musculoskeletal: no gait disturbance, no weakness Extremities: no edema and no cyanosis Neuro:awake, And following commands Results & Data Vital Signs (Past 12 Hours) Vital Signs Temp Pulse Pulse Resp BP Pulse Ox O2 Del Method 10/29/23 12:01 36.6 C 57 L 20 144/72 H 99 Room Air 10/29/23 08:09 36.7 C 61 18 164/75 H 95 Room Air 10/29/23 08:08 52 L 10/29/23 02:48 36.8 C 56 L 18 131/65 93 Room Air 10/29/23 02:06 47 L Diagnostic Findings CBC 10/29/23 Range/Units 06:54 WBC 7.83 (4.8-10.8) K/ul RBC 4.00 L (4.20-5.40) M/uL Hgb 11.0 L (12.0-16.0) g/dl Hct 34.3 L (37.0-47.0) % Plt Count 197 (130-400) K/uL Neut # (Auto) 5.30 (1.40-6.50) K/uL Lymph # (Auto) 1.51 (1.20-3.40) K/uL [place] # (Auto) 0.78 H (0.11-0.59) K/uL Eos # (Auto) 0.17 (0.00-0.50) K/uL Baso # (Auto) 0.05 (0.00-0.20) K/uL Comprehensive Metabolic Panel 10/29/23 Range/Units 06:54 Sodium 139 (136-145) mmol/L Potassium 3.8 (3.5-5.1) mmol/L Chloride 105 (98-107) mmol/L Carbon Dioxide 25 (21-32) mmol/L BUN 16 (6-23) mg/dl Creatinine 0.94 (0.6-1.2) mg/dl Glucose 123 H (70-99(Fasting)) mg/dl Calcium 9.7 (8.6-10.3) mg/dl Intake and Output 10/28/23 10/29/2324 22:59 06:59 14:59 Intake Total 450 / 700 250 / 700 100 / 100 Output Total 2503 / 2703 200 / 2703 Balance -2052 100 / 100 Intake: IV 100 / 200 100 / 200 100 / 100 Piperacillin/Tazobactam 4.5 gm 100 / 200 100 / 200 100 / 100 In Dextrose 5% Mini-B 100 ml @ 25 mls/hr IV Q8H [facility] Rx#: [id number] Oral 350 / 500 150 / 500 Output: Urine Amount (Catheter) 2500 / 2700 200 / 2700 Castaneda/Indwelling 2500 / 2700 200 / 2700 # Bowel Movements 3 / 3 Other: Weight 87.4 kg Weight Measurement Method Built in [facility]
--- NOTE | 2023-10-29 14:25 | Hospitalist Progress Note ---
Date of Service October 29, 2023 Assessment & Plan (1) Acute hypoxic respiratory failure: Plan: Acute Hypoxic Respiratory Failure s/p Intubation Severe Sepsis, Flash Pulmonary Edema - Patient meets severe sepsis criteria 2/2 tachypnea, WBC>12K, present source of infection and lactic acidosis. Patient was over at [facility] getting an MRI of her left knee this morning when she suddenly became short of breath during the imaging study. According to staff at [facility], the patient was "blue" in appearance and subsequently had to be intubated by an anesthesia provider who was called to MRI. Initially staff tried CPAP, but unfortunately that did not help. Per EMS, the patient did not receive any medications or sedation prior to the MRI. She also did not receive any IV contrast. Patient received succinylcholine, propofol and Versed from anesthesiology for the intubation. she was admitted to ICU started with intravenous Zosyn and doxycycline for suspicion of sepsis/infection also received intravenous Lasix for florid pulmonary edema appreciate production editor input and recommendation- status post extubation on 10/27/2023 MRSA screen has been negative, sputum culture is growing light normal milo and the blood cultures are pending BioFire is negative antibiotics have been changed to doxycycline only clinically much better today and will continue current medications Gram-negative bacilli bacteremia 1 out of 2 blood culture is growing gram-negative bacilli Urine culture is showing no growth which is less than 1000 colonies per mL and final report is pending Started on intravenous Zosyn since 10/27/2020 Will continue current antibioticw With Zosyn and doxycycline (2) Acute HFrEF (heart failure with reduced ejection fraction): Plan: secondary to reduced EF admitted with flash pulmonary edema received doses of intravenous Lasix on admission further dosing of diuretics as per the sales support specialist Repeat echo showedLV systolic function is normal, no regional wall motion abnormalities, there is no left ventricular apical thrombus and LVEF is 60 to 65%. Compared to the prior study dated 10/26/2023 there has been an interval improvement in the left ventricular EF which is now normal Likely had Takotsubo cardiomyopathy (3) Severe sepsis: Plan: lactate is elevated at 4.1 secondary to hypotension and hypoxia 1 out of 2 blood culture is positive for gram-negative bacilli Intravenous Zosyn has been started Will await further identification and sensitivity of the organism (4) Elevated troponin: Plan: initial troponin was 33.3 and that went up to 570 likely has non-ST elevation ID status post cardiac cath- with unremarkable coronaries echo of the heart showed- diffuse left ventricular hypokinesis involving the apical and mid mid segments with relative sparing of the basal segments, EF 30 to 35%, grade 2 diastolic dysfunction and there is no significant valvular disease appreciate cardiology input and recommendation (5) Hypertension: Plan: blood pressure remains elevated Appears pt was on 40mg lisinopril daily in the past. Not currently taking any antihypertensive meds per chart review. started on carvedilol 6.25 mg twice daily continuing lisinopril 10 mg in the morning- will increase to 20 mg once a day has been getting as needed labetalol, hydralazine and Nitropaste Blood pressure seems to be controlled at 144/72 remains minimally bradycardic at 57 (6) Increased anion gap metabolic acidosis: Plan Dyslipidemia Pt on atorvastatin 80mg OB TECH according to chart review. Holding statin therapy for now; fasting lipid panel in AM - follow. CKD Stage III Cr 1.0 on admission, appears baseline Cr ~1.1-1.4 per chart review. Repeat CMP in AM - monitor renal function. Avoid nephrotoxic meds when able. Yahir Armenta [Patient's ]: #[phone] Lyric Oseguera [Patient's Daughter]: #[phone] DVT Prophylaxis: SQ Lovenox Code Status: FULL CODE - Code status not on file, patient will be full code at this time 2/2 inability to communicate. Discussed with the daughter in detail Admission and Anticipated Discharge Date Admission Date: October 26, 2023 Subjective 10/28/2023 the patient was seen and examined in ICU she was admitted with acute hypoxic respiratory failure which required ventilatory support also underwent cardiac cath on admission which did not show any significant CAD status post extubation on she has been generally weak and noted to have very high blood pressure 10/29/2023 The patient was seen and examined in telemetry unit in presence of the daughter She has been feeling much better Her blood pressure seems to be reasonably controlled Denies any significant symptoms Review of Systems Review of Systems: all systems reviewed and are unremarkable except as noted below Physical Exam Physical Exam: Sitting on a chair without any acute distress Constitutional: well developed, well nourished, + ill appearing and + obese Eyes: PERRL, conjunctivae normal, anicteric sclerae ENMT: external ear and nose normal, oropharynx normal Neck: trachea midline, no thyromegaly Respiratory: no respiratory distress Auscultation: + diminished lung sounds and + crackles ( minimal bibasilar crackles) Cardiovascular: Rate/Rhythm: regular rate, regular rhythm and + bradycardic Heart Sounds: normal S1 and normal S2; no murmur Extremities: + edema ( trace edema bilaterally) Gastrointestinal (Abdomen): Inspection/Auscultation: normal bowel sounds; abdomen not distended Percussion/Palpation: abdomen soft; abdomen nontender Neurologic: normal touch/pain/proprioception and moves all extremities; no focal motor deficits Lymphatic: no cervical or axillary lymphadenopathy Results & Data Results & Data Vital Signs (Past 12 Hours) Vital Signs Temp Pulse Pulse Resp BP Pulse Ox O2 Del Method 10/29/23 12:01 36.6 C 57 L 20 144/72 H 99 Room Air 10/29/23 08:09 36.7 C 61 18 164/75 H 95 Room Air 10/29/23 08:08 52 L 10/29/23 02:48 36.8 C 56 L 18 131/65 93 Room Air Laboratory Results Short CBC 10/29/23 Range/Units 06:54 WBC 7.83 (4.8-10.8) K/ul Hgb 11.0 L (12.0-16.0) g/dl Hct 34.3 L (37.0-47.0) % Plt Count 197 (130-400) K/uL BMP 10/29/23 06:54 Sodium 139 Potassium 3.8 Chloride 105 Carbon Dioxide 25 BUN 16 Creatinine 0.94 Glucose 123 H Calcium 9.7 Medications Administered Current Inpatient Medications Carvedilol (Carvedilol 12.5 Mg Tab) 12.5 mg PO BID [facility] Stop: 11/27/23 20:59 Last Admin: 10/29/23 08:34 Dose: 12.5 mg Enoxaparin Sodium (Enoxaparin Inj 40 Mg/0.4 Ml Syr) 40 mg SQ Q24H [facility] Stop: 11/25/23 13:59 Last Admin: 10/28/23 13:37 Dose: 40 mg Piperacillin Sod/Tazobactam (Sod 4.5 gm/ Dextrose) 100 mls @ 25 mls/hr IV Q8H [facility]; Protocol Stop: 11/11/23 19:59 Last Admin: 10/29/23 12:18 Dose: 25 mls/hr Magnesium Sulfate/Dextrose (Magnesium Sulfate / D5w) 1 gm in 100 mls @ 50 mls/hr IV Q2H [facility] Stop: 10/29/23 15:44 Last Admin: 10/29/23 12:24 Dose: 50 mls/hr Lisinopril (Lisinopril 20 Mg Tab) 20 mg PO [facility] Stop: 11/28/23 08:59 Last Admin: 10/29/23 09:39 Dose: 20 mg Nitroglycerin (Nitroglycerin 2% Ointment 30gm Tube) 1 inch EXT Q6H PRN PRN Reason: Blood Pressure - High Stop: 11/27/23 11:29 Last Admin: 10/28/23 12:06 Dose: 1 inch Spironolactone (Spironolactone 25 Mg Tab) 25 mg PO [facility] Stop: 11/27/23 14:44 Last Admin: 10/29/23 08:34 Dose: 25 mg
[2023-10-29] MEDS: carvediloL 6.25 MG TAB PO SCH (19:44)
[2023-10-30 07:43] LABS: Basophils # (auto) 0.04 K/uL (0.00-0.20); Basophils % (auto) 0.6 %; Eosinophils # (auto) 0.17 K/uL (0.00-0.50); Eosinophils % (auto) 2.5 %; Hematocrit (blood only) 36.6 % (37.0-47.0); Hemoglobin 11.6 g/dl (12.0-16.0); Immature Granulocytes # (auto) 0.01 K/uL (0.01-0.20); Immature Granulocytes % (auto) 0.1 %; Lymphocytes # (auto) 1.65 K/uL (1.20-3.40); Lymphocytes % (auto) 24.6 %; Mean Corpuscular Hemoglobin 27.6 pg (25.0-34.0); Mean Corpuscular Hgb Conc 31.7 g/dL (32.0-36.0); Mean Corpuscular Volume 86.9 fL (80.0-100.0); Mean Platelet Volume 12.6 fL (9.4-12.4); Monocytes # (auto) 0.69 K/uL (0.11-0.59); Monocytes % (auto) 10.3 %; Neutrophils # (auto) 4.15 K/uL (1.40-6.50); Neutrophils % (auto) 61.9 %; Platelet Count 201 K/uL (130-400); RDW Coefficient of Variation 14.1 % (11.5-14.5); RDW Standard Deviation 44.5 fL (36.4-46.3); Red Blood Count 4.21 M/uL (4.20-5.40); White Blood Count 6.71 K/ul (4.8-10.8)
[2023-10-30 07:48] LABS: BUN Creatinine Ratio 13.7 (10-20); Calcium 9.7 mg/dl (8.6-10.3); Creatinine Clr Calc Pharmacy 62.3 ml/min; Est GFR (African American) 72.8 ml/min; Est GFR (Non-African American) 62.9 ml/min; Magnesium 2.3 mg/dl (1.7-2.4); Potassium 3.9 mmol/L (3.5-5.1)
--- NOTE | 2023-10-30 10:54 | Electrocardiogram Report ---
Test Reason : Blood Pressure : / mmHG Vent. Rate : 040 BPM Atrial Rate : 040 BPM P-R Int : 258 ms QRS Dur : 090 ms QT Int : 726 ms P-R-T Axes : 027 055 158 degrees QTc Int : 591 ms Marked sinus bradycardia with 1st degree A-V block Prolonged QT Abnormal ECG When compared with ECG of 26-OCT-2023 14:50, ST no longer elevated in Anterolateral leads Serial changes of evolving Anterolateral injury Confirmed by Smooth Salinas ([id number]) on 10/30/2023 10:54:20 AM Referred By: REFERRED SELF Confirmed By:Smooth Salinas
--- NOTE | 2023-10-30 11:00 | Cardiology Progress Note ---
Date of Service October 30, 2023 Assessment & Plan (1) Takotsubo syndrome: (2) Acute HFrEF (heart failure with reduced ejection fraction): (3) Hypertension: (4) Bacteremia: Plan 63-year-old female admitted with stress-induced cardiomyopathy and subsequent normalization of LV function/wall motion. Blood pressure improved with medical therapies. Continue lisinopril, spironolactone, and carvedilol as ordered. No further inpatient cardiac testing or intervention recommended at this time. Antibiotics as per internal medicine. Cardiology will sign off. Please call with additional concerns/questions. I spent a total of 45 minutes on the date of service in preparation, delivery, and documentation of the care provided to this patient, excluding any time spent in the performance of separately billed services. Admission and Anticipated Discharge Date Admission Date: October 26, 2023 Subjective Patient seen examined the bedside. Feeling well from a cardiovascular perspective today. Admits to noncompliance with medications prior to admission. Previously discontinued all antihypertensive meds. Telemetry reveals sinus bradycardia 40-60s. No significant pauses, heart block, or dysrhythmia. Blood pressure improved, however, carvedilol reduced to 6.25 mg twice daily due to bradycardia. Review of Systems Review of Systems: All systems reviewed & are unremarkable except as noted in Subjective Physical Exam Constitutional: well nourished; no acute distress Respiratory: normal respiratory effort; no respiratory distress, no labored breathing and no retractions Auscultation: no crackles, no rales, no rhonchi and no wheezes Cardiovascular: Rate/Rhythm: regular rate and regular rhythm Heart Sounds: normal S1 and normal S2; no murmur Vessels: no JVD and no carotid bruit Extremities: no edema Gastrointestinal (Abdomen): Inspection/Auscultation: abdomen normal to inspection and normal bowel sounds; abdomen not distended Pe rcussion/Palpation: abdomen soft; abdomen nontender, no guarding and abdomen not rigid Neurologic: CN's II-XI intact bilaterally and moves all extremities Results & Data Vital Signs (Past 12 Hours) Vital Signs Temp Pulse Pulse Resp BP Pulse Ox O2 Del Method 10/30/23 08:15 36.6 C 61 18 146/72 H 97 Room Air 10/30/23 03:29 36.9 C 88 18 146/76 H 95 Room Air 10/29/23 23:07 46 L Laboratory Results CBC 10/30/23 Range/Units 06:39 WBC 6.71 (4.8-10.8) K/ul RBC 4.21 (4.20-5.40) M/uL Hgb 11.6 L (12.0-16.0) g/dl Hct 36.6 L (37.0-47.0) % Plt Count 201 (130-400) K/uL Neut # (Auto) 4.15 (1.40-6.50) K/uL Lymph # (Auto) 1.65 (1.20-3.40) K/uL Gaston # (Auto) 0.69 H (0.11-0.59) K/uL Eos # (Auto) 0.17 (0.00-0.50) K/uL Baso # (Auto) 0.04 (0.00-0.20) K/uL Comprehensive Metabolic Panel 10/30/23 Range/Units 06:39 Sodium 137 (136-145) mmol/L Potassium 3.9 (3.5-5.1) mmol/L Chloride 103 (98-107) mmol/L Carbon Dioxide 27 (21-32) mmol/L BUN 13 (6-23) mg/dl Creatinine 0.95 (0.6-1.2) mg/dl Glucose 117 H (70-99(Fasting)) mg/dl Calcium 9.7 (8.6-10.3) mg/dl Intake and Output 10/29/23 10/30/23 10/30/23 22:59 06:59 14:59 Intake Total 500 / 1000 300 / 1000 100 / 100 Output Total 301 / 301 200 / 200 Balance 199 / 699 300 / 699 -100 / -100 Intake: IV 200 / 500 100 / 500 100 / 100 Magnesium Sulfate / D5w 1 gm In 100 / 200 100 ml @ 50 mls/hr IV Q2H [facility] Rx#:[id number] Piperacillin/Tazobactam 4.5 gm 100 / 300 100 / 300 100 / 100 In Dextrose 5% Mini-B 100 ml @ 25 mls/hr IV Q8H [facility] Rx#: [id number] Oral 300 / 500 200 / 500 Output: Urine 100 / 100 200 / 200 Urine Amount (Catheter) 200 / 200 Castaneda/Indwelling 200 / 200 # Bowel Movements Other: # Unmeasured Voids 1 2 1 Weight 85 kg Weight Measurement Method Built in [facility] (3) Hypertension Hypertension type: primary hypertension Qualified Code(s): I10 - Essential (primary) hypertension
--- NOTE | 2023-10-30 11:50 | Electrocardiogram Report ---
Test Reason : Blood Pressure : / mmHG Vent. Rate : 091 BPM Atrial Rate : 092 BPM P-R Int : 000 ms QRS Dur : 094 ms QT Int : 490 ms P-R-T Axes : 000 063 209 degrees QTc Int : 602 ms Sinus rhythm with PACs and 1st degree AV block Prolonged QT Abnormal ECG When compared with ECG of 27-OCT-2023 07:22, Vent. rate has increased BY 51 BPM T wave inversion now evident in Inferior leads Confirmed by Smooth Salinas ([id number]) on 10/30/2023 11:49:56 AM Referred By: REFERRED SELF Confirmed By:Smooth Salinas
--- NOTE | 2023-10-30 14:24 | Hospitalist Progress Note ---
Date of Service October 30, 2023 Assessment & Plan (1) Acute hypoxic respiratory failure: Plan: Acute Hypoxic Respiratory Failure s/p Intubation Severe Sepsis, Flash Pulmonary Edema - Patient meets severe sepsis criteria 2/2 tachypnea, WBC>12K, present source of infection and lactic acidosis. Patient was over at [facility] getting an MRI of her left knee this morning when she suddenly became short of breath during the imaging study. According to staff at [facility], the patient was "blue" in appearance and subsequently had to be intubated by an anesthesia provider who was called to MRI. Initially staff tried CPAP, but unfortunately that did not help. Per EMS, the patient did not receive any medications or sedation prior to the MRI. She also did not receive any IV contrast. Patient received succinylcholine, propofol and Versed from anesthesiology for the intubation. she was admitted to ICU started with intravenous Zosyn and doxycycline for suspicion of sepsis/infection also received intravenous Lasix for florid pulmonary edema appreciate manpower development manager input and recommendation- status post extubation on 10/27/2023 MRSA screen has been negative, sputum culture is growing light normal milo and the blood cultures are pending BioFire is negative antibiotics have been changed to doxycycline only clinically much better today and will continue current medications Remains medically stable without any shortness of breath or palpitation or any more chest pain Has been ambulating in the room without any difficulties She wants to go home Gram-negative bacilli bacteremia 1 out of 2 blood culture is growing gram-negative bacilli Urine culture is showing no growth which is less than 1000 colonies per mL and final report is pending Started on intravenous Zosyn since 10/27/2020 Will continue current antibioticw With Zosyn and doxycycline Final identification and sensitivity is pending (2) Acute HFrEF (heart failure with reduced ejection fraction): Plan: secondary to reduced EF admitted with flash pulmonary edema received doses of intravenous Lasix on admission further dosing of diuretics as per the content management specialist Repeat echo showedLV systolic function is normal, no regional wall motion abnormalities, there is no left ventricular apical thrombus and LVEF is 60 to 65%. Compared to the prior study dated 10/26/2023 there has been an interval improvement in the left ventricular EF which is now normal Likely had Takotsubo cardiomyopathy Cardiology cleared for discharge Likely home after receiving the final culture and sensitivity report (3) Severe sepsis: Plan: lactate is elevated at 4.1 secondary to hypotension and hypoxia 1 out of 2 blood culture is positive for gram-negative bacilli Intravenous Zosyn has been started Will await further identification and sensitivity of the organism (4) Elevated troponin: Plan: initial troponin was 33.3 and that went up to 570 likely has non-ST elevation [place] status post cardiac cath- with unremarkable coronaries echo of the heart showed- diffuse left ventricular hypokinesis involving the apical and mid mid segments with relative sparing of the basal segments, EF 30 to 35%, grade 2 diastolic dysfunction and there is no significant valvular disease appreciate cardiology input and recommendation (5) Hypertension: Plan: blood pressure remains elevated Appears pt was on 40mg lisinopril daily in the past. Not currently taking any antihypertensive meds per chart review. 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 Holding statin therapy for now; fasting lipid panel in AM - follow. CKD Stage III Cr 1.0 on admission, appears baseline Cr ~1.1-1.4 per chart review. Repeat CMP in AM - monitor renal function. Avoid nephrotoxic meds when able. Yahir Armenta [Patient's ]: #[phone] Lyric Oseguera [Patient's Daughter]: #[phone] DVT Prophylaxis: SQ Lovenox Code Status: FULL CODE - Code status not on file, patient will be full code at this time 2/2 inability to communicate. Discussed with the daughter in detail Admission and Anticipated Discharge Date Admission Date: October 26, 2023 Subjective 10/30/2023 The patient was seen and examined in telemetry unit She has been feeling much better and denies any significant symptoms Denies any fever and or chills She will have PT and OT evaluation prior to discharge Review of Systems Review of Systems: all systems reviewed and are unremarkable except as noted below Physical Exam Physical Exam: Sitting on a chair without any acute distress Constitutional: well developed, well nourished, + ill appearing and + obese Eyes: PERRL, conjunctivae normal, anicteric sclerae ENMT: external ear and nose normal, oropharynx normal Neck: trachea midline, no thyromegaly Respiratory: no respiratory distress Auscultation: + diminished lung sounds and + crackles ( minimal bibasilar crackles) Cardiovascular: Rate/Rhythm: regular rate, regular rhythm and + bradycardic Heart Sounds: normal S1 and normal S2; no murmur Extremities: + edema ( trace edema bilaterally) Gastrointestinal (Abdomen): Inspection/Auscultation: normal bowel sounds; abdomen not distended Percussion/Palpation: abdomen soft; abdomen nontender Neurologic: normal touch/pain/proprioception and moves all extremities; no focal motor deficits Lymphatic: no cervical or axillary lymphadenopathy Results & Data Results & Data Vital Signs (Past 12 Hours) Vital Signs Temp Pulse Resp BP Pulse Ox O2 Del Method 10/30/23 11:47 36.7 C 53 L 20 143/67 H 93 Room Air 10/30/23 08:15 36.6 C 61 18 146/72 H 97 Room Air 10/30/23 03:29 36.9 C 88 18 146/76 H 95 Room Air Laboratory Results Short CBC 10/30/23 Range/Units 06:39 WBC 6.71 (4.8-10.8) K/ul Hgb 11.6 L (12.0-16.0) g/dl Hct 36.6 L (37.0-47.0) % Plt Count 201 (130-400) K/uL BMP 10/30/23 06:39 Sodium 137 Potassium 3.9 Chloride 103 Carbon Dioxide 27 BUN 13 Creatinine 0.95 Glucose 117 H Calcium 9.7 Medications Administered Current Inpatient Medications Carvedilol (Carvedilol 6.25 Mg Tab) 6.25 mg PO BID [facility] Stop: 11/28/23 20:59 Last Admin: 10/30/23 08:44 Dose: 6.25 mg Enoxaparin Sodium (Enoxaparin Inj 40 Mg/0.4 Ml Syr) 40 mg SQ Q24H [facility] Stop: 11/25/23 13:59 Last Admin: 10/30/23 14:00 Dose: 40 mg Piperacillin Sod/Tazobactam (Sod 4.5 gm/ Dextrose) 100 mls @ 25 mls/hr IV Q8H [facility]; Protocol Stop: 11/11/23 19:59 Last Admin: 10/30/23 11:37 Dose: 25 mls/hr Lisinopril (Lisinopril 20 Mg Tab) 20 mg PO [facility] Stop: 11/28/23 08:59 Last Admin: 10/30/23 08:43 Dose: 20 mg Nitroglycerin (Nitroglycerin 2% Ointment 30gm Tube) 1 inch EXT Q6H PRN PRN Reason: Blood Pressure - High Stop: 11/27/23 11:29 Last Admin: 10/28/23 12:06 Dose: 1 inch Spironolactone (Spironolactone 25 Mg Tab) 25 mg PO [facility] Stop: 11/27/23 14:44 Last Admin: 10/30/23 08:44 Dose: 25 mg (5) Hypertension Hypertension type: primary hypertension Qualified Code(s): I10 - Essential (primary) hypertension
--- NOTE | 2023-10-31 15:30 | Electrocardiogram Report ---
Test Reason : Blood Pressure : / mmHG Vent. Rate : 061 BPM Atrial Rate : 061 BPM P-R Int : 256 ms QRS Dur : 090 ms QT Int : 448 ms P-R-T Axes : 062 040 140 degrees QTc Int : 450 ms Sinus rhythm with 1st degree A-V block T wave abnormality, consider anterolateral ischemia Abnormal ECG When compared with ECG of 27-OCT-2023 12:33, DC interval has increased Vent. rate has decreased BY 30 BPM Nonspecific T wave abnormality has replaced inverted T waves in Inferior leads T wave inversion less evident in Lateral leads Confirmed by Jared Lundberg ([id number]) on 10/31/2023 3:30:09 PM Referred By: REFERRED SELF Confirmed By:Jared Lundberg
--- NOTE | 2023-10-31 17:08 | Hospitalist Progress Note ---
Date of Service October 31, 2023 Assessment & Plan (1) Acute hypoxic respiratory failure: Plan: Acute Hypoxic Respiratory Failure s/p Intubation Severe Sepsis, Flash Pulmonary Edema - Patient meets severe sepsis criteria 2/2 tachypnea, WBC>12K, present source of infection and lactic acidosis. Patient was over at [facility] getting an MRI of her left knee this morning when she suddenly became short of breath during the imaging study. According to staff at [facility], the patient was "blue" in appearance and subsequently had to be intubated by an anesthesia provider who was called to MRI. Initially staff tried CPAP, but unfortunately that did not help. Per EMS, the patient did not receive any medications or sedation prior to the MRI. She also did not receive any IV contrast. Patient received succinylcholine, propofol and Versed from anesthesiology for the intubation. she was admitted to ICU started with intravenous Zosyn and doxycycline for suspicion of sepsis/infection also received intravenous Lasix for florid pulmonary edema appreciate recreational facilities motel manager input and recommendation- status post extubation on 10/27/2023 MRSA screen has been negative, sputum culture is growing light normal milo and the blood cultures are pending BioFire is negative antibiotics have been changed to doxycycline only clinically much better today and will continue current medications Remains medically stable without any shortness of breath or palpitation or any more chest pain Has been ambulating in the room without any difficulties Remains asymptomatic, saturating normally on room air and has been ambulating without any difficulties She wants to go home Gram-negative bacilli bacteremia 1 out of 2 blood culture is growing gram-negative bacilli Urine culture is showing no growth which is less than 1000 colonies per mL and final report is pending Started on intravenous Zosyn since 10/27/2020 Will continue current antibioticw With Zosyn and doxycycline Final identification and sensitivity is pending Talk to the microbiology the specimen has been sent to [facility] for the final identification of the bacteria Require an EKG and there is no documentation of prolonged QT If we do not get the sensitivity tomorrow likely discharge on Cipro She wants to go home and likely discharge on ciprofloxacin for a total of 14 days course given the history of bacteremia 1 out of 2 (2) Acute HFrEF (heart failure with reduced ejection fraction): Plan: secondary to reduced EF admitted with flash pulmonary edema received doses of intravenous Lasix on admission further dosing of diuretics as per the staker surveying Repeat echo showedLV systolic function is normal, no regional wall motion abnormalities, there is no left ventricular apical thrombus and LVEF is 60 to 65%. Compared to the prior study dated 10/26/2023 there has been an interval improvement in the left ventricular EF which is now normal Likely had Takotsubo cardiomyopathy Cardiology cleared for discharge (3) Severe sepsis: Plan: lactate is elevated at 4.1 secondary to hypotension and hypoxia 1 out of 2 blood culture is positive for gram-negative bacilli Intravenous Zosyn has been started Will await further identification and sensitivity of the organism 1 out of 2 gram-negative bacilli bacteremia and further identification is pending (4) Elevated troponin: Plan: initial troponin was 33.3 and that went up to 570 likely has non-ST elevation [place] status post cardiac cath- with unremarkable coronaries echo of the heart showed- diffuse left ventricular hypokinesis involving the apical and mid mid segments with relative sparing of the basal segments, EF 30 to 35%, grade 2 diastolic dysfunction and there is no significant valvular disease appreciate cardiology input and recommendation (5) Hypertension: Plan: blood pressure remains elevated Appears pt was on 40mg lisinopril daily in the past. Not currently taking any antihypertensive meds per chart review. 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 Holding statin therapy for now; fasting lipid panel in AM - follow. CKD Stage III Cr 1.0 on admission, appears baseline Cr ~1.1-1.4 per chart review. Repeat CMP in AM - monitor renal function. Avoid nephrotoxic meds when able. Yahir Armenta [Patient's ]: #[phone] Lyric Oseguera [Patient's Daughter]: #[phone] DVT Prophylaxis: SQ Lovenox Code Status: FULL CODE - Code status not on file, patient will be full code at this time 2/2 inability to communicate. Discussed with the daughter in detail Discussed with the daughter Admission and Anticipated Discharge Date Admission Date: October 26, 2023 Subjective 10/30/2023 The patient was seen and examined in telemetry unit She has been feeling much better and denies any significant symptoms Denies any fever and or chills She will have PT and OT evaluation prior to discharge 10/31/2023 The patient was seen and examined in telemetry unit She has been feeling much better denies any more cardiac symptoms No more fever and no chills and no urinary symptoms She wants to go home Review of Systems 2 Review of Systems: all systems reviewed and are unremarkable except as noted below Physical Exam Physical Exam: Sitting on a chair without any acute distress Constitutional: well developed, well nourished, + ill appearing and + obese Eyes: PERRL, conjunctivae normal, anicteric sclerae ENMT: external ear and nose normal, oropharynx normal Neck: trachea midline, no thyromegaly Respiratory: no respiratory distress Auscultation: + diminished lung sounds and + crackles ( minimal bibasilar crackles) Cardiovascular: Rate/Rhythm: regular rate, regular rhythm and + bradycardic Heart Sounds: normal S1 and normal S2; no murmur Extremities: + edema ( trace edema bilaterally) Gastrointestinal (Abdomen): Inspection/Auscultation: normal bowel sounds; abdomen not distended Percussion/Palpation: abdomen soft; abdomen nontender Neurologic: normal touch/pain/proprioception and moves all extremities; no focal motor deficits Lymphatic: no cervical or axillary lymphadenopathy Results & Data Results & Data Vital Signs (Past 12 Hours) Vital Signs Temp Pulse Resp BP Pulse Ox O2 Del Method 10/31/23 16:31 72 18 100 Room Air 10/31/23 12:02 36.6 C 60 20 152/79 H 94 Room Air 10/31/23 08:18 36.6 C 67 18 194/94 H 98 Room Air Medications Administered Current Inpatient Medications Carvedilol (Carvedilol 6.25 Mg Tab) 6.25 mg PO BID [facility] Stop: 11/28/23 20:59 Last Admin: 10/31/23 08:26 Dose: 6.25 mg Enoxaparin Sodium (Enoxaparin Inj 40 Mg/0.4 Ml Syr) 40 mg SQ Q24H [facility] Stop: 11/25/23 13:59 Last Admin: 10/31/23 14:14 Dose: 40 mg Piperacillin Sod/Tazobactam (Sod 4.5 gm/ Dextrose) 100 mls @ 25 mls/hr IV Q8H [facility]; Protocol Stop: 11/11/23 19:59 Last Admin: 10/31/23 11:50 Dose: 25 mls/hr Lisinopril (Lisinopril 20 Mg Tab) 20 mg PO [facility] Stop: 11/28/23 08:59 Last Admin: 10/31/23 08:26 Dose: 20 mg Nitroglycerin (Nitroglycerin 2% Ointment 30gm Tube) 1 inch EXT Q6H PRN PRN Reason: Blood Pressure - High Stop: 11/27/23 11:29 Last Admin: 10/28/23 12:06 Dose: 1 inch Spironolactone (Spironolactone 25 Mg Tab) 25 mg PO [facility] Stop: 11/27/23 14:44 Last Admin: 10/31/23 08:26 Dose: 25 mg (5) Hypertension Hypertension type: primary hypertension Qualified Code(s): I10 - Essential (primary) hypertension
--- NOTE | 2023-11-01 17:52 | Hospitalist Progress Note ---
Date of Service November 01, 2023 Assessment & Plan (1) Acute hypoxic respiratory failure: Plan: Patient was over at [facility] getting an MRI of her left knee this morning when she suddenly became short of breath during the imaging study. According to staff at [facility], the patient was "blue" in appearance and subsequently had to be intubated by an anesthesia provider who was called to MRI. Initially staff tried CPAP, but unfortunately that did not help. Per EMS, the patient did not receive any medications or sedation prior to the MRI. She also did not receive any IV contrast. Patient received succinylcholine, propofol and Versed from anesthesiology for the intubation. Acute Hypoxic Respiratory Failure s/p Intubation/Extubation Severe Sepsis, Flash Pulmonary Edema Suspected gram-negative bacteremia --Chest CTA:Pulmonary edema and bilateral pleural effusions are seen. Superimposed pneumonia would be impossible to exclude. -- Blood culture1/4: Gram-negative bacilli --Urine culture negative -- BioFire negative -- Currently on IV Zosyn -Appreciate critical care input -Weaned off of supplemental oxygen Blood cultures currently being evaluated at [facility] for identification of the bacteria Will consider to discharge on ciprofloxacin to complete 2-week course if blood cultures remain pending (2) Acute HFrEF (heart failure with reduced ejection fraction): Plan: Takotsubo cardiomyopathy Repeat echo showed improved EF 60 to 65% Continue lisinopril, Aldactone, carvedilol Appreciate cardiology input (3) Severe sepsis: Plan: Management as above (4) Elevated troponin: Plan: Likely demand ischemia S/P cardiac cath- with unremarkable coronaries Echo reviewed Continue current medications (5) Hypertension: Plan: Continue lisinopril, carvedilol Monitor BP (6) Increased anion gap metabolic acidosis: Plan: Resolved Plan Dyslipidemia Resume statin on discharge CKD Stage III baseline Cr ~1.1-1.4 per chart review. Monitor renal function DVT Px SQ Lovenox Code Status: Full code Admission and Anticipated Discharge Date Admission Date: October 26, 2023 Subjective Patient is seen and examined at bedside States feeling well today Denies any chest pain, dyspnea, dizziness, nausea, vomiting, abdominal pain Eager to get discharged Blood cultures pending Review of Systems Review of Systems: All systems reviewed & are unremarkable except as noted in Subjective Physical Exam Physical Exam: Physical Exam: Vitals signs as noted above General Appearance:Moderately built and nourished, no apparent distress Head: normocephalic, Atraumatic Eyes: normal inspection, EOMI Neck: supple, Trachea midline Respiratory/Chest: Normal breath sounds, CTA, No accessory muscle use Cardiovascular: S1, S2, No murmur Abdomen/GI:Soft, Non tender, Bowel sounds present Extremities/Musculoskeletal:normal inspection, no edema Neurologic/Psych:AAOX3, grossly no focal neurological deficits Skin: normal color, warm Results & Data Results & Data Vital Signs (Past 12 Hours) Vital Signs Temp Pulse Pulse Resp BP BP Pulse Ox 11/01/23 15:58 146/83 H 11/01/23 15:37 36.4 C L 66 16 176/75 H 96 11/01/23 11:19 36.7 C 56 L 18 134/64 96 11/01/23 08:23 36.6 C 65 16 157/77 H 99 11/01/23 07:46 36.8 C 57 L 18 168/86 H 98 O2 Del Method 11/01/23 15:58 11/01/23 15:37 Room Air 11/01/23 11:19 Room Air 11/01/23 08:23 Room Air 11/01/23 07:46 Room Air (5) Hypertension Hypertension type: primary hypertension Qualified Code(s): I10 - Essential (primary) hypertension
[2023-11-02 07:31] LABS: BUN Creatinine Ratio 16.3 (10-20); Calcium 9.6 mg/dl (8.6-10.3); Creatinine Clr Calc Pharmacy 57.1 ml/min; Est GFR (African American) 65.3 ml/min; Est GFR (Non-African American) 56.3 ml/min; Potassium 4.1 mmol/L (3.5-5.1)
--- NOTE | 2023-11-02 12:04 | Hospitalist Progress Note ---
Date of Service November 02, 2023 Assessment & Plan (1) Acute hypoxic respiratory failure: Plan: Patient was over at [facility] getting an MRI of her left knee this morning when she suddenly became short of breath during the imaging study. According to staff at [facility], the patient was "blue" in appearance and subsequently had to be intubated by an anesthesia provider who was called to MRI. Initially staff tried CPAP, but unfortunately that did not help. Per EMS, the patient did not receive any medications or sedation prior to the MRI. She also did not receive any IV contrast. Patient received succinylcholine, propofol and Versed from anesthesiology for the intubation. Acute Hypoxic Respiratory Failure s/p Intubation/Extubation Severe Sepsis, Flash Pulmonary Edema Suspected gram-negative bacteremia --Chest CTA:Pulmonary edema and bilateral pleural effusions are seen. Superimposed pneumonia would be impossible to exclude. -- Blood culture1/4: Gram-negative bacilli --Urine culture negative -- BioFire negative -- Currently on IV Zosyn -Appreciate critical care input -Weaned off of supplemental oxygen Blood cultures currently being evaluated at [facility] for identification of the bacteria Will consider to discharge on ciprofloxacin to complete 2-week course if blood cultures remain pending Plan to discharge home today (2) Acute HFrEF (heart failure with reduced ejection fraction): Plan: Takotsubo cardiomyopathy Repeat echo showed improved EF 60 to 65% Continue lisinopril, Aldactone, carvedilol Appreciate cardiology input (3) Severe sepsis: Plan: Management as above (4) Elevated troponin: Plan: Likely demand ischemia S/P cardiac cath- with unremarkable coronaries Echo reviewed Continue current medications (5) Hypertension: Plan: Continue lisinopril, carvedilol Monitor BP (6) Increased anion gap metabolic acidosis: Plan: Resolved Plan Dyslipidemia Resume statin on discharge CKD Stage III baseline Cr ~1.1-1.4 per chart review. Monitor renal function DVT Px SQ Lovenox Code Status: Full code Admission and Anticipated Discharge Date Admission Date: October 26, 2023 Subjective Patient is seen and examined at bedside No new complaints Updated patient's family over the phone Eager to get discharged Denies any chest pain, dyspnea, dizziness, nausea, vomiting, abdominal pain Review of Systems Review of Systems: All systems reviewed & are unremarkable except as noted in Subjective Physical Exam Physical Exam: Physical Exam: Vitals signs as noted above General Appearance:Moderately built and nourished, no apparent distress Head: normocephalic, Atraumatic Eyes: normal inspection, EOMI Neck: supple, Trachea midline Respiratory/Chest: Normal breath sounds, CTA, No accessory muscle use Cardiovascular: S1, S2, No murmur Abdomen/GI:Soft, Non tender, Bowel sounds present Extremities/Musculoskeletal:normal inspection, no edema Neurologic/Psych:AAOX3, grossly no focal neurological deficits Skin: normal color, warm Results & Data Results & Data Vital Signs (Past 12 Hours) Vital Signs Temp Pulse Resp BP Pulse Ox O2 Del Method 11/02/23 08:06 36.8 C 65 16 150/72 H 94 Room Air Laboratory Results BMP 11/02/23 06:11 Sodium 138 Potassium 4.1 Chloride 104 Carbon Dioxide 27 BUN 17 Creatinine 1.04 Glucose 111 H Calcium 9.6 (5) Hypertension Hypertension type: primary hypertension Qualified Code(s): I10 - Essential (primary) hypertension
--- NOTE | 2023-11-02 12:15 | Discharge Summary ---
Date of Service November 02, 2023 Admission HPI Per Admitting Provider Ana Armenta is a 63y/o F with PMHx including dyslipidemia, asthma, HTN and CKD stage III who presented to the ED via ambulance after being intubated by EMS personnel secondary to acute respiratory distress. History obtained from chart review and discussion with ED provider. Patient was over at [facility] getting an MRI of her left knee this morning when she suddenly became short of breath during the imaging study. According to staff at [facility], the patient was "blue" in appearance and subsequently had to be intubated by an anesthesia provider who was called to MRI. Initially staff tried CPAP, but unfortunately that did not help. Per EMS, the patient did not receive any medications or sedation prior to the MRI. She also did not receive any IV contrast. Patient received succinylcholine, propofol and Versed from anesthesiology for the intubation. Unable to obtain any history from patient secondary to intubation status. Admission Exam Per Admitting Provider Physical Exam: Vitals signs as noted above General Appearance:Obese, no distress, + sedated and intubated Head: normocephalic, Atraumatic Eyes: normal inspection, EOMI Neck: supple, Trachea midline Respiratory/Chest: Normal breath sounds, b/l crackles, No accessory muscle use Cardiovascular: S1, S2, No murmur, + tachycardia Abdomen/GI:Soft, Non tender, Bowel sounds present Extremities/Musculoskeletal:normal inspection, 1+ bilateral LE edema Neurologic/Psych: Sedated, intubated, unable to perform complete neurological exam Skin: normal color, warm Principal Diagnosis Acute Hypoxic Respiratory Failure Severe Sepsis, Flash Pulmonary Edema Suspected gram-negative bacteremia Takotsubo cardiomyopathy Hypertension Discharge Data Allergies Allergy/AdvReac Type Severity Reaction Status Date / Time codeine AdvReac Gastrointestinal Verified 10/26/23 13:42 Upset Consultations 10/26/23 10:36 ED Decision to Admit Stat 10/26/23 12:30 Consult 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 Routine 10/26/23 15:06 Consult Cardiology Routine Procedures Performed Operation Date: 10/26/23 15:30 Actual Procedures p Cineradiography w/Routine Exam - Moe Bray MD p Cath, Left with Cors and Vent - Moe Bray MD Laboratory Results WBC 6.71 K/ul (4.8-10.8) 10/30/23 06:39 RBC 4.21 M/uL (4.20-5.40) 10/30/23 06:39 Hgb 11.6 g/dl (12.0-16.0) L 10/30/23 06:39 POC Hgb 12.2 g/dl (12.0-16.0) 10/26/23 12:05 Hct 36.6 % (37.0-47.0) L 10/30/23 06:39 POC Hct 36 % (37-47) L 10/26/23 12:05 MCV 86.9 fL (80.0-100.0) 10/30/23 06:39 MCH 27.6 pg (25.0-34.0) 10/30/23 06:39 MCHC 31.7 g/dL (32.0-36.0) L 10/30/23 06:39 RDW Std Deviation 44.5 fL (36.4-46.3) 10/30/23 06:39 RDW Coeff of Vanita 14.1 % (11.5-14.5) 10/30/23 06:39 Plt Count 201 K/uL (130-400) 10/30/23 06:39 MPV 12.6 fL (9.4-12.4) H 10/30/23 06:39 Immature Gran % (Auto) 0.1 % 10/30/23 06:39 Neut % (Auto) 61.9 % 10/30/23 06:39 Lymph % (Auto) 24.6 % 10/30/23 06:39 Mathews % (Auto) 10.3 % 10/30/23 06:39 Eos % (Auto) 2.5 % 10/30/23 06:39 Baso % (Auto) 0.6 % 10/30/23 06:39 Neut # (Auto) 4.15 K/uL (1.40-6.50) 10/30/23 06:39 Lymph # (Auto) 1.65 K/uL (1.20-3.40) 10/30/23 06:39 Mathews # (Auto) 0.69 K/uL (0.11-0.59) H 10/30/23 06:39 Eos # (Auto) 0.17 K/uL (0.00-0.50) 10/30/23 06:39 Baso # (Auto) 0.04 K/uL (0.00-0.20) 10/30/23 06:39 Immature Gran # (Auto) 0.01 K/uL (0.01-0.20) 10/30/23 06:39 Sample Site R Radial 10/26/23 12:05 POC pH 7.38 (7.35-7.45) 10/26/23 12:05 POC pCO2 33 mmHg (35-46) L 10/26/23 12:05 POC pO2 72 mmHg (80-95) L 10/26/23 12:05 POC HCO3 19 paula/L (19-24) 10/26/23 12:05 POC Total CO2 20 mmol/L (24-31) L 10/26/23 12:05 POC Base Excess -6.0 paula/L (-9-1.8) 10/26/23 12:05 ABG pH (Temp Correct) 7.378 (7.35-7.45) 10/26/23 12:05 ABG pCO2 (Temp Corrct 33 mmHg (35-46) L 10/26/23 12:05 POC ABG pO2 at Pt Temp 72 10/26/23 12:05 POC ABG O2 Sat 94.0 % (90-95) 10/26/23 12:05 Tk Test Pass 10/26/23 12:05 O2 Delivery Device Ventilator 10/26/23 12:05 POC O2 Rate 28 10/26/23 12:05 Minute Ventilation 10.9 10/26/23 12:05 POC FiO2 40 % 10/26/23 12:05 Tidal Volume 400 10/26/23 12:05 PEEP 5 10/26/23 12:05 POC Sodium 137 mmol/L (135-144) 10/26/23 12:05 Sodium 138 mmol/L (136-145) 11/02/23 06:11 POC Potassium 3.5 mmol/L (3.3-5.0) 10/26/23 12:05 Potassium 4.1 mmol/L (3.5-5.1) 11/02/23 06:11 POC Chloride 106 mmol/L (101-112) 10/26/23 10:53 Chloride 104 mmol/L (98-107) 11/02/23 06:11 Carbon Dioxide 27 mmol/L (21-32) 11/02/23 06:11 POC Total CO2 18 mmol/L (24-31) L 10/26/23 10:53 Anion Gap 7 (3-11) 11/02/23 06:11 POC Anion Gap 20.0 mmol/L (16-25) 10/26/23 10:53 POC BUN 14 mg/dl (7-18) 10/26/23 10:53 BUN 17 mg/dl (6-23) 11/02/23 06:11 Creatinine 1.04 mg/dl (0.6-1.2) 11/02/23 06:11 POC Creatinine 1.0 mg/dl (0.6-1.3) 10/26/23 10:53 Est Cr Clr Drug Dosing 57.1 ml/min 11/02/23 06:11 Est GFR ( Amer) 65.3 ml/min 11/02/23 06:11 Est GFR (Non-Af Amer) 56.3 ml/min 11/02/23 06:11 BUN/Creatinine Ratio 16.3 (10-20) 11/02/23 06:11 Glucose 111 mg/dl (70-99(Fasting)) H 11/02/23 06:11 POC Glucose 120 mg/dl (70-99) H 10/27/23 11:21 POC Glucose (other) 263 mg/dl (70-99) H 10/26/23 10:53 Estimat Average Glucose 111 mg/dl 10/26/23 10:20 Hemoglobin A1c 5.5 % (4.5-5.6) 10/26/23 10:20 Lactate 3.2 mmol/L (0.4-2.0) H* 10/26/23 13:02 Calcium 9.6 mg/dl (8.6-10.3) 11/02/23 06:11 POC Ioniz Calcium Peggy 1.12 mmol/l (1.12-1.32) 10/26/23 10:53 Phosphorus 4.2 mg/dl (2.5-4.9) 10/28/23 04:06 Magnesium 2.3 mg/dl (1.7-2.4) 10/30/23 06:39 Total Bilirubin 0.8 mg/dl (0.2-1.0) 10/28/23 04:06 AST 19 U/L (13-39) 10/28/23 04:06 ALT 20 U/L (7-52) 10/28/23 04:06 Alkaline Phosphatase 67 U/L (34-104) 10/28/23 04:06 Troponin I High Sens 570.0 pg/ml (0-14) H* D 10/26/23 19:29 B-Natriuretic Peptide 310 pg/ml (0-100) H 10/26/23 15:16 Total Protein 6.6 gm/dl (6.0-8.3) 10/28/23 04:06 Albumin 3.6 gm/dl (3.4-5.0) 10/28/23 04:06 Globulin 3.0 gm/dl (2.5-4.0) 10/28/23 04:06 Albumin/Globulin Ratio 1.2 (0.9-2) 10/28/23 04:06 Triglycerides Cancelled 10/27/23 03:40 Cholesterol Cancelled 10/27/23 03:40 LDL Cholesterol, Calc Cancelled 10/27/23 03:40 VLDL Cholesterol, Calc Cancelled 10/27/23 03:40 HDL Cholesterol Cancelled 10/27/23 03:40 Cholesterol/HDL Ratio Cancelled 10/27/23 03:40 Lipase 19 U/L (11-82) 10/26/23 10:20 Procalcitonin < 0.02 ng/ml (0-0.5) 10/26/23 10:22 TSH 1.331 uIu/ml (0.300-4.500) 10/26/23 13:16 Urine Color Yellow 10/26/23 12:20 Urine Appearance Clear (Clear) 10/26/23 12:20 Urine pH 6.0 (4.5-7.5) 10/26/23 12:20 Ur Specific [place] 1.033 (1.000-1.030) H 10/26/23 12:20 Urine Protein 2+ (Negative) H 10/26/23 12:20 Urine Glucose (UA) Trace (Negative) H 10/26/23 12:20 Urine Ketones Negative (Negative) 10/26/23 12:20 Urine Blood Trace (Negative) H 10/26/23 12:20 Urine Nitrite Negative (Negative) 10/26/23 12:20 Urine Bilirubin Negative (Negative) 10/26/23 12:20 Urine Urobilinogen Negative (Negative) 10/26/23 12:20 Ur Leukocyte Esterase Negative (Negative) 10/26/23 12:20 Urine WBC (Auto) 0-5 /hpf (0-5) 10/26/23 12:20 Urine RBC (Auto) 0-2 /hpf (0-2) 10/26/23 12:20 U Hyaline Cast (Auto) 6-10 /lpf (0-2) H 10/26/23 12:20 U Epithel Cells (Auto) 3-5 /hpf (0-2) H 10/26/23 12:20 Urine Bacteria (Auto) None Seen (None Seen) 10/26/23 12:20 Nasal Screen MRSA (PCR) Negative (Negative) 10/26/23 11:12 Adenovirus (PCR) Not Detected (NotDetected) 10/26/23 12:35 B. pertussis DNA (PCR) Not Detected (NotDetected) 10/26/23 12:35 B.parapertussis DNA PCR Not Detected (NotDetected) 10/26/23 12:35 C. pneumoniae DNA (PCR) Not Detected (NotDetected) 10/26/23 12:35 Coronavirus OC43 (PCR) Not Detected (NotDetected) 10/26/23 12:35 Coronavirus HKU1 (PCR) Not Detected (NotDetected) 10/26/23 12:35 Coronavirus 229E (PCR) Not Detected (NotDetected) 10/26/23 12:35 SARS-CoV-2 (PCR) Not Detected (NotDetected) 10/26/23 12:35 Coronavirus NL63 (PCR) Not Detected (NotDetected) 10/26/23 12:35 Human Metapneumovir PCR Not Detected (NotDetected) 10/26/23 12:35 Influenza Type A (PCR) Not Detected (NotDetected) 10/26/23 12:35 Influenza Type B (PCR) Not Detected (NotDetected) 10/26/23 12:35 Urine Legionella Ag SEE NOTE 10/26/23 12:20 M. pneumoniae (PCR) Not Detected (NotDetected) 10/26/23 12:35 Parainfluenza 1 (PCR) Not Detected (NotDetected) 10/26/23 12:35 Parainfluenza 2 (PCR) Not Detected (NotDetected) 10/26/23 12:35 Parainfluenza 3 (PCR) Not Detected (NotDetected) 10/26/23 12:35 Parainfluenza 4 (PCR) Not Detected (NotDetected) 10/26/23 12:35 RSV (PCR) Not Detected (NotDetected) 10/26/23 12:35 Entero/Rhino (PCR) Not Detected (NotDetected) 10/26/23 12:35 Bld Cult ID Panel PCR PCR Panel Negative (NotDetected) 10/26/23 14:50 Impressions Chest CTA 10/26/23 10:45 CT angio chest PE protocol CLINICAL HISTORY: PE TECHNIQUE: Multidetector row helical CT of the chest was performed with angiographic protocol. Coronal and sagittal reformations were obtained. Coronal and sagittal MIPS were obtained from the axial data set and were submitted for review. Automated dose lowering techniques and/or adjustment according to patient size were utilized for this exam. CT DOSE: 1291.86 mGy.cm Comparison: Comparison is made to CTA chest 02/21/2014 FINDINGS: Lungs and pleura: Small bilateral pleural effusions are seen. There are underlying airspace opacities as well as smooth interlobular septal thickening. Heart and pericardium: Cardiomegaly is seen with biatrial enlargement. Vessels: No evidence of pulmonary embolism. Mediastinum and lurdes: Subcentimeter lymph nodes are seen. Chest wall and lower neck: Unremarkable. Abdomen: Unremarkable. Bones: Degenerative changes in the thoracic spine. IMPRESSION: Pulmonary edema and bilateral pleural effusions are seen. Superimposed pneumonia would be impossible to exclude. ACT 112: Negative or not required by law. Electronically signed by: Antione Lott M.D. 10/26/2023 12:[address] 10/26/23 10:45 CT SCAN OF THE BRAIN WITHOUT IV CONTRAST CLINICAL HISTORY: Respiratory failure. Change in mental status. COMPARISON STUDY: No priors. TECHNIQUE: Unenhanced axial CT scan of the brain is performed from the vertex to the skull base. A dose lowering technique was utilized adhering to the principles of ALARA. 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 Brain parenchyma: The brain parenchyma is normal in appearance. There is no hemorrhage, mass effect, or evidence of acute territorial ischemia by CT criteria. Manuel-white matter differentiation is preserved. No extra-axial fluid collection is seen. Ventricles, sulci, cisterns: Normal in configuration. Intracranial vasculature: The visualized intracranial vasculature at the skull base is normal in appearance. Calvarium: Unremarkable. Sinuses and mastoids: There is trace mucosal thickening within the ethmoid sinuses. There is a small right mastoid effusion. The left mastoid air cells are well pneumatized. Orbits: The bony orbits are grossly intact. IMPRESSION: There is no hemorrhage, mass effect, or evidence of acute territorial ischemia by CT criteria. ACT 112: Negative or not required by law. Electronically signed by: Simon Ramos M.D. 10/26/2023 11:49 AM KUB X-Ray 10/26/23 15:22 KUB CLINICAL HISTORY: OG placement COMPARISON STUDY: None. FINDINGS: The tip of the orogastric tube is within the body of the stomach. Visualized bowel gas pattern is normal. Bibasilar opacities are incidentally noted. There are trace bilateral pleural effusions. IMPRESSION: Tip of orogastric tube within the body of the stomach. ACT 112: Negative or not required by law. Electronically signed by: Kurt Wallace M.D. 10/26/2023 4:57 PM Chest X-Ray 10/28/23 07:00 XR chest 1V portable CLINICAL HISTORY: follow up CHF TECHNIQUE: Single frontal radiograph of the chest was obtained. Comparison: Comparison is made to chest radiograph 10/26/2023 FINDINGS: No lines and tubes are seen. Cardiomegaly is noted. The aortic arch is calcified. The lungs are clear. No evidence of pleural effusion or pneumothorax. IMPRESSION: No acute chest disease. Cardiomegaly is noted. ACT 112: Negative or not required by law. Electronically signed by: Antione Lott M.D. 10/28/2023 9:08 AM Ordered Studies 10/26/23 10:45 CT angio chest PE protocol Stat CT head/brain wo con Stat 10/26/23 15:31 CL Cath Imgs for PACS use only Routine Hospital Course (1) Acute hypoxic respiratory failure: [facility] knee this morning when she suddenly became short of breath during the imaging study. According to staff at [facility], the patient was "blue" in appearance and subsequently had to be intubated by an anesthesia provider who was called to MRI. Initially staff tried CPAP, but unfortunately that did not help. Per EMS, the patient did not receive any medications or sedation prior to the MRI. She also did not receive any IV contrast. Patient received succinylcholine, propofol and Versed from anesthesiology for the intubation. Acute Hypoxic Respiratory Failure s/p Intubation/Extubation Severe Sepsis, Flash Pulmonary Edema Suspected gram-negative bacteremia --Chest CTA:Pulmonary edema and bilateral pleural effusions are seen. Superimposed pneumonia would be impossible to exclude. -- Blood culture1/4: Gram-negative bacilli --Urine culture negative -- BioFire negative -- Currently on IV Zosyn -Appreciate critical care input -Weaned off of supplemental oxygen Blood cultures currently being evaluated at [facility] for identification of the bacteria Will consider to discharge on ciprofloxacin to complete 2-week course if blood cultures remain pending Plan to discharge home today (2) Acute HFrEF (heart failure with reduced ejection fraction): Takotsubo cardiomyopathy Repeat echo showed improved EF 60 to 65% Continue lisinopril, Aldactone, carvedilol Appreciate cardiology input (3) Severe sepsis: Management as above (4) Elevated troponin: Likely demand ischemia S/P cardiac cath- with unremarkable coronaries Echo reviewed Continue current medications (5) Hypertension: Continue lisinopril, carvedilol Monitor BP (6) Increased anion gap metabolic acidosis: Resolved Plan Dyslipidemia Resume statin on discharge CKD Stage III baseline Cr ~1.1-1.4 per chart review. Monitor renal function DVT Px SQ Lovenox Code Status: Full code Total Time Total Time Spent Total Time Spent (In Minutes): 56 minutes Discharge Plan Discharge Items Patient Disposition: Home - Self-Care Reason For Visit: acute RESPIRITORY DISTRESS Discharge Diagnosis: Acute Hypoxic Respiratory Failure Severe Sepsis, Flash Pulmonary Edema Suspected gram-negative bacteremia Takotsubo cardiomyopathy Activity: Per Instructions section Exercise/Sports: Wait until after follow-up appointment Non-emergency contact: Primary Care Provider and Film Printer Call non-emergency contact if: you have any medication questions, your symptoms worsen, your pain is concerning for you and you have a fever Follow-up/Referrals: Sudheer Shell DO [Film Printer] - (The Cardiology office will contact you for a follow up appointment.) Ariane Lu DO [Outside Practitioners] - (Date & Time 11/07/2023 10:00 AM Provider Ariane Lu DO Department Family [facility] ) Diet: Heart Healthy Fluids: 2000ml (8 cups) Addtl Attending Provider Instructions: Follow-up with your primary care physician Dr. Lu on 11/07/2023 10:00 AM Follow-up with your county agricultural agent Dr. Shell in 2 to 3 weeks as advised -- Complete the antibiotic course ciprofloxacin as prescribed. --Your final blood cultures are pending at the time of discharge. Follow-up with your physician for results. Seek immediate medical attention if your symptoms reoccur or worsen Please take all medications as instructed on discharge list below. Please call if you have any questions or problems. You can reach a [facility] hospitalist on duty at [facility] 24 hours a day by calling [phone] Pending Studies at Discharge: Yes Studies:: Blood culture Stand-Alone Forms: My [facility], Smoking Cessation Medications and DC Order Prescriptions: New carvedilol 6.25 mg Tablet 6.25 mg PO BID Qty: 60 1RF lisinopril 20 mg Tablet 20 mg PO QAM Qty: 30 1RF spironolactone 25 mg Tablet 25 mg PO QAM Qty: 30 1RF ciprofloxacin HCl 500 mg tablet 500 mg PO BID Qty: 12 0RF Continued ATORVASTATIN (LIPITOR) 80 mg tablet 80 mg PO DAILY Qty: 0 acetaminophen [Tylenol Arthritis Pain] 650 mg Tablet Extended Release 650 mg PO Q8H PRN (Reason: Pain) Discharge Orders: Discharge Order (Routine); Ordered 11/02/23 Ordered By: Denys Kaminski Admission Data Admit Date/Time: 10/26/23 11:05 Attending Provider: Denys Kaminski Admit Provider: Denys Kamisnki Primary Care Provider: PCP,NO Other Providers: Denys Kaminski; Jeffrey Castellon; Edgar Liang
== END 2023-11-02 13:56 | disposition home or self-care (01) | DRG 871 ==
LOC: ED 10:10 → 1E 11:05 → SUATTDRO 11:05 → 1E 11:28 → 2E 10-28 18:19 → 3W 10-31 18:05